=== PATIENT | female | born 1975 | race Caucasian/White ===

== ENCOUNTER → 2020-07-02 10:46 | Outpatient (CLI) | payer OTHER, SELFPAY ==
--- NOTE | 2020-07-02 10:49 | MR_ITS ---
PROCEDURE: MR LUMBAR SPINE WO CON CLINICAL INDICATION: BACK PAIN Bilateral leg numbness and tingling. Rt side is worse. Symptoms xyrs. COMPARISON: No exams were available for comparison TECHNIQUE: Standard multiplanar multiecho sequences are performed without contrast. 3-D MIP and myelographic images are also rendered and reviewed FINDINGS: There is normal alignment. The spinal cord ends at the L1 level. T11-T12: Unremarkable. T12-L1: Mild degenerative disc disease. Minimal bulging disc. Mild facet and ligamentum hypertrophy. L1-L2: Mild degenerative disc disease with mild facet and ligamentum hypertrophy L2-L3: Degenerative disc disease with bulging disc along with facet and ligamentum hypertrophy with bilateral lateral recess narrowing and mild bilateral foraminal narrowing. L3-L4: Degenerative disc disease with bulging disc which is eccentric toward the right versus broad-based right paracentral and foraminal disc protrusion along with facet and ligamentum hypertrophy. There is moderate right lateral recess narrowing with the disc abutting the anterior aspect of the right L4 nerve root. There is mild right-sided foraminal narrowing . Increased T2 signal involves the L3 vertebral body right laterally suggesting a small incidental hemangioma measuring approximately 11 mm. L4-5: Minimal bulging disc with mild facet and ligamentum hypertrophy L5-S1: Mild facet hypertrophic change. No extruded herniated disc is evident. No bony canal stenosis. No acute fracture. IMPRESSION: Multilevel lumbar spondylosis with degenerative disc disease, bulging disc, and facet and ligamentum hypertrophy. Please see above for detailed description at each level. Small broad-based right paracentral and foraminal disc protrusion versus asymmetric bulging disc at L3-L4 with some impingement upon the right L4 nerve root. No extruded herniated disc or canal stenosis. Dictated by: Joel Doyle MD 07/05/2020 12:29 Joel Doyle MD in [place] 07/05/2020 12:29
== END ==
PROVIDERS: PCP Nurse Practitioner; Visit Provider Clinical Nurse Specialist Family Health
DX: M54.5 Low back pain (principal)
CPT/HCPCS: 72148; 76376

== ENCOUNTER → 2020-07-08 15:28 | Outpatient (POV) | payer OTHER, SELFPAY ==
[2020-07-08 15:31] VITALS: BMI 37.4
--- NOTE | 2020-07-08 16:02 | P.CONS_ITS ---
[facility] Pain Management SOAP Note Subjective:: Is a pleasant 44-year-old white female who presents today for follow-up after her most recent MRI. Patient does have degenerative disc disease along with facet hypertrophy ligamentum flavum hypertrophy. Patient does have a L3-L4 disc abutting the anterior aspect of the right L4 nerve root. Patient is interested in injective therapy. She would like to try injective therapy prior to any neurosurgical consultations. She rates her pain today a 5 out of 10. ROS General: no recent weight change, no fever, no sleep disturbances Respiratory: no cough, no shortness of air, no recurring pulmonary infections Cardiovascular/Peripheral Vascular: No chest pain, No palpitations, no edema, no shortness of breath. Gastrointestinal: no new onset incontinence, normal bowel movements reported Genitourinary: no new onset incontinence Musculoskeletal: Back pain, right leg pain Psychiatric: normal mood/ affect Neurological: [denies new onset weakness in extremities], [denies new onset balance issues] Objective:: Physical Exam General: Alert and oriented x3, no acute distress, pleasant and cooperative, [on room air] Lungs: Resps E/U, Symmetrical chest expansion, Eyes: PERRL Musculoskeletal: Flexion and extension of lumbar spine somewhat guarded secondary to pain, deep tendon reflexes normal, strength in upper and lower extremities [5/5], Palgic gait noted Neurological: speech clear, dispenser operator equal, no gross sensory deficits Assessment:: Degenerative disc disease lumbar spine lumbar radiculopathy, back pain Plan:: We will set the patient up for a L3-L4 lumbar epidural steroid injection. I will follow-up with her after this reassess her symptoms at that time. She is not on any anticoagulation therapy. She has been instructed to call the office if she has any issues prior to her next appointment. Dr. Hurst has reviewed this note and agrees with this plan of care. This note was dictated using voice recognition software and may contain errors or omissions [facility] History I have reviewed the patient's past medical history: Yes *Have you ever received a pneumonia vaccine?: No *Have you received a flu vaccine this season?: Yes - *Social History *Occupational Status:: employed *Travel in the last 8 weeks: None Family Hx:: No significant family history, Non-contributory
== END ==
PROVIDERS: Visit Provider Clinical Nurse Specialist Family Health
DX: M51.16 Intervertebral disc disorders with radiculopathy, lumbar region (principal)
CPT/HCPCS: 99212; G0463

== ENCOUNTER 2020-07-09 09:31 | Day surgery (SDC) | payer OTHER, SELFPAY ==
[2020-07-09 09:34] VITALS: BP 136/82; PULSE 76; RESP 20; O2SAT 98; BMI 34.4
[2020-07-09 09:43] VITALS: BP 135/85; PULSE 88; RESP 18; O2SAT 98
[2020-07-09 09:45] VITALS: BP 139/78; PULSE 85; RESP 18; O2SAT 98
[2020-07-09 09:50] VITALS: BP 130/85; PULSE 80; RESP 20; O2SAT 98
--- NOTE | 2020-07-09 09:50 | HMH.PMPROC ---
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 She has had SI joint injections before which have helped her tremendously. She now has new pain in her low back and down her right leg. MRI does show disc herniation at L3-L4. She is disc herniated abutting the right L4 nerve root. Most of her pain is down the right leg. We will do a lumbar epidural steroid injection today to help her with her pain symptoms. Procedure Details:: Informed consent was obtained and the risk and benefits of the procedure was explained to the patient. The patient was taken to the procedure room. The patient was placed prone on the procedure table. The patient was prepped and draped in sterile fashion. C-arm fluoroscopy was used to view the lumbar spine. Skin and subcutaneous tissues were anesthetized using lidocaine. I placed an 18-gauge epidural needle and advanced into the L3-L4 interspace using fluoroscopic guidance and [id number] to air. After confirmation of needle placement in the epidural space with dye I injected 2 mL of lidocaine 1.5% with Depo-Medrol 80 mg. Patient tolerated the procedure well with no complications. Plan and Disposition:: We will follow-up with her in 2 weeks. Will reevaluate symptoms at that time.
== END 2020-07-09 09:51 | disposition home or self-care (01) ==
LOC: SC.PAINP 09:31
PROVIDERS: Visit Provider Anesthesiology
DX: M51.16 Intervertebral disc disorders with radiculopathy, lumbar region (principal); K21.9 Gastro-esophageal reflux disease without esophagitis; E03.9 Hypothyroidism, unspecified; I10 Essential (primary) hypertension; Z98.84 Bariatric surgery status
CPT/HCPCS: 62323; J1040; Q9966

== ENCOUNTER 2020-08-20 11:06 | Day surgery (SDC) | payer OTHER, SELFPAY ==
[2020-08-20 11:13] VITALS: BP 122/85; PULSE 86; RESP 18; TEMP 36.7; O2SAT 100; BMI 37.3
[2020-08-20 11:41] VITALS: BP 129/71; PULSE 67; RESP 18; O2SAT 99
[2020-08-20 11:42] VITALS: BP 129/71; PULSE 68; RESP 18; O2SAT 99
--- NOTE | 2020-08-20 11:46 | HMH.PMPROC ---
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 She has done well with previous SI joint injections. She now has increasing back pain in her back rating down her right leg. She has a herniated disc at L3-L4 with disc herniation abutting the right L4 nerve root. We will do a lumbar epidural steroid injection at L3-L4 today to see if this gives her relief of her pain symptoms. Procedure Details:: Informed consent was obtained and the risk and benefits of the procedure was explained to the patient. The patient was taken to the procedure room. The patient was placed prone on the procedure table. The patient was prepped and draped in sterile fashion. C-arm fluoroscopy was used to view the lumbar spine. Skin and subcutaneous tissues were anesthetized using lidocaine. I placed an 18-gauge epidural needle and advanced into the L3-L4 interspace using fluoroscopic guidance and [id number] to air. After confirmation of needle placement in the epidural space with dye I injected 2 mL of lidocaine 1.5% with Depo-Medrol 80 mg. Patient tolerated the procedure well with no complications. Plan and Disposition:: We will follow-up with her in 2 weeks. Will reevaluate her symptoms at that time. She is having problem with her SI joints again. She got several weeks relief from the last round of injections. She may need repeat bilateral SI joint injections in the future.
[2020-08-20 12:00] VITALS: BP 124/60; PULSE 86; RESP 20; O2SAT 100
== END 2020-08-20 12:00 | disposition home or self-care (01) ==
LOC: SC.PAINP 11:06
PROVIDERS: Visit Provider Anesthesiology
DX: M51.16 Intervertebral disc disorders with radiculopathy, lumbar region (principal); M51.26 Other intervertebral disc displacement, lumbar region; I10 Essential (primary) hypertension; E03.9 Hypothyroidism, unspecified; Z98.84 Bariatric surgery status
CPT/HCPCS: 62323; J1040; Q9966

== ENCOUNTER → 2021-03-31 10:20 | Outpatient (CLI) | payer BC, SELFPAY | PROVIDERS: PCP Nurse Practitioner Family; Visit Provider Nurse Practitioner | DX: U07.1 COVID-19 (principal) | CPT/HCPCS: C9803; U0003; U0005 ==

== ENCOUNTER → 2023-01-26 11:00 | Outpatient (CLI) | payer OTHER, SELFPAY ==
[2023-01-26 11:55] LABS: Basophils # 0.1 K/mm3 (0-0.2); Basophils % 0.9 % (0.1-2.0); Eosinophils # 0.3 K/mm3 (0.0-0.4); Eosinophils % 3.6 % (0.1-12.0); Hematocrit 25.8 % (37.0-47.0); Hemoglobin 7.7 g/dL (12.2-16.2); Lymphocytes # 1.6 K/mm3 (0.7-4.5); Lymphocytes % 21.5 % (10-50); Mean Corpuscular HGB Conc 29.7 g/dL (31.8-35.4); Mean Corpuscular Hemoglobin 19.8 pg (27.0-31.2); Mean Corpuscular Volume 66.6 fl (81-99); Mean Platelet Volume 7.8 fl (7.4-10.4); Monocytes # 0.6 K/mm3 (0.1-1.0); Monocytes % 7.6 % (1.7-9.3); Neutrophils # 4.9 K/mm3 (1.8-7.8); Neutrophils % 66.4 % (37.0-80.0); Platelet Count 495 K/mm3 (142-424); Red Blood Count 3.87 M/mm3 (4.20-5.40); Red Cell Distribution Width 18.7 % (11.5-17.5); White Blood Count 7.4 K/mm3 (4.8-10.8)
[2023-01-26 12:46] LABS: Alanine Aminotransferase 19 U/L (12-78); Albumin Level 4.3 g/dl (3.5-5.0); Alkaline Phosphatase 96 U/L (38-126); Aspartate Amino Transferase 29 U/L (14-36); Bilirubin,Direct 0.1 mg/dl (0.0-0.4); Bilirubin,Indirect 0.2 mg/dL (0.0-0.9); Bilirubin,Total 0.3 mg/dl (0.2-1.3); Bilirubin,Unconjugated 0.3 mg/dL (0.0-1.1); Blood Urea Nitrogen 6 mg/dl (7-17); Calcium 9.2 mg/dl (8.4-10.2); Carbon Dioxide 27 mmol/L (22.0-30.0); Chloride 103 mmol/L (98-107); Chol/HDL Ratio 4.2 (1-3.5); Cholesterol 174 mg/dl (140-200); Estimated Glomerular Filt Rate 106 ml/min (>60); GFR (African American) 129 ML/MIN (>60); Glucose 100 mg/dl (74-100); HDL Cholesterol 41 mg/dl (40-60); Sodium 140 mmol/L (136-145); Total Protein,Serum 7.4 g/dl (6.3-8.2); Triglycerides 94 mg/dl (30-150); VLDL Cholesterol 19 mg/dL (0-40)
[2023-01-26 13:05] LABS: 25-OH Vitamin D, Total 38.3 ng/mL (30-100); Direct LDL Cholesterol 103.35 mg/dL (100-129)
[2023-01-26 13:18] LABS: Thyroid Stimulating Hormone 1.53 uIU/mL (0.465-4.68)
[2023-01-26 13:43] VITALS: BMI 38.8
[2023-01-26 14:37] LABS: Reticulocyte % (Auto) 1.7 % (0.9-3.2)
[2023-01-26 15:35] LABS: Iron 25 ug/dL (37-170)
[2023-01-26 15:45] LABS: Total Iron Binding Capacity 467 ug/dL (265-497)
[2023-01-26 16:35] LABS: Folate > 20.00 ng/mL
[2023-01-26 18:48] LABS: Vitamin B12 > 1000 pg/mL (239-931)
== END ==
PROVIDERS: Internal Medicine Medical Oncology; Nurse Practitioner Family; PCP Nurse Practitioner Family; Visit Provider Internal Medicine
DX: R06.00 Dyspnea, unspecified (principal); R42 Dizziness and giddiness; R00.0 Tachycardia, unspecified; R60.0 Localized edema; D64.9 Anemia, unspecified; E66.9 Obesity, unspecified; Z68.38 Body mass index [BMI] 38.0-38.9, adult; Z82.49 Family history of ischemic heart disease and other diseases of the circulatory system
CPT/HCPCS: 36415; 80048; 80061; 80076; 82306; 82607; 82746; 83540; 83550; 83735; 84439; 84443; 85025; 85044

== ENCOUNTER 2023-02-02 15:40 | Outpatient (CLI) | payer OTHER, SELFPAY ==
[2023-02-02 15:58] VITALS: BP 128/69; PULSE 79; RESP 17; O2SAT 99
[2023-02-02 16:28] VITALS: BP 108/71; PULSE 77; RESP 16
== END 2023-02-02 16:45 | disposition home or self-care (01) ==
LOC: INF 15:40
PROVIDERS: PCP Nurse Practitioner Family; Visit Provider Internal Medicine Medical Oncology
DX: D50.8 Other iron deficiency anemias (principal)
CPT/HCPCS: 96365; J1756

== ENCOUNTER 2023-02-05 08:31 | Outpatient (CLI) | payer OTHER, SELFPAY ==
[2023-02-05 08:58] VITALS: BP 109/57; PULSE 83; RESP 18; O2SAT 100
[2023-02-05 09:30] VITALS: BP 103/68; PULSE 76; RESP 18
== END 2023-02-05 09:30 | disposition home or self-care (01) ==
LOC: INF 08:32
PROVIDERS: PCP Nurse Practitioner Family; Visit Provider Internal Medicine Medical Oncology
DX: D50.9 Iron deficiency anemia, unspecified (principal)
CPT/HCPCS: 96365; J1756

== ENCOUNTER 2023-02-12 08:28 | Outpatient (CLI) | payer OTHER, SELFPAY ==
[2023-02-12 08:52] VITALS: BP 102/51; PULSE 71; RESP 18; O2SAT 98
[2023-02-12 09:35] VITALS: BP 106/55; PULSE 74; RESP 18; O2SAT 97
== END 2023-02-12 09:35 | disposition home or self-care (01) ==
LOC: INF 08:28
PROVIDERS: PCP Nurse Practitioner Family; Visit Provider Internal Medicine Medical Oncology
DX: D50.9 Iron deficiency anemia, unspecified (principal)
CPT/HCPCS: 96365; J1756

== ENCOUNTER 2023-02-19 08:18 | Outpatient (CLI) | payer OTHER, SELFPAY ==
[2023-02-19 08:40] VITALS: BP 111/53; PULSE 71; RESP 18; TEMP 36.3; O2SAT 99
[2023-02-19 09:15] VITALS: BP 114/58; PULSE 76; RESP 18; O2SAT 99
== END 2023-02-19 09:20 | disposition home or self-care (01) ==
LOC: INF 08:19
PROVIDERS: PCP Nurse Practitioner Family; Visit Provider Internal Medicine Medical Oncology
DX: D50.9 Iron deficiency anemia, unspecified (principal)
CPT/HCPCS: 96365; J1756

== ENCOUNTER 2023-02-26 08:28 | Outpatient (CLI) | payer OTHER, SELFPAY ==
[2023-02-26 08:50] VITALS: BP 91/54; PULSE 84; RESP 18; TEMP 36.8; O2SAT 99
[2023-02-26 09:25] VITALS: BP 110/61; PULSE 84; RESP 18; TEMP 36.7; O2SAT 97
== END 2023-02-26 09:30 | disposition home or self-care (01) ==
LOC: INF 08:29
PROVIDERS: PCP Nurse Practitioner Family; Visit Provider Internal Medicine Medical Oncology
DX: D50.9 Iron deficiency anemia, unspecified (principal)
CPT/HCPCS: 96365; J1756

== ENCOUNTER 2023-03-22 17:19 | Outpatient (CLI) | payer SELFPAY ==
[2023-03-22 18:34] LABS: Basophils # 0.1 K/mm3 (0-0.2); Eosinophils # 0.4 K/mm3 (0.0-0.4); Eosinophils % 5.1 % (0.1-12.0); Hematocrit 35.5 % (37.0-47.0); Hemoglobin 11.4 g/dL (12.2-16.2); Lymphocytes # 2.4 K/mm3 (0.7-4.5); Lymphocytes % 30.9 % (10-50); Mean Corpuscular HGB Conc 32.2 g/dL (31.8-35.4); Mean Corpuscular Hemoglobin 26.1 pg (27.0-31.2); Mean Corpuscular Volume 80.9 fl (81-99); Mean Platelet Volume 7.5 fl (7.4-10.4); Monocytes # 0.7 K/mm3 (0.1-1.0); Monocytes % 8.3 % (1.7-9.3); Neutrophils # 4.3 K/mm3 (1.8-7.8); Neutrophils % 54.7 % (37.0-80.0); Platelet Count 315 K/mm3 (142-424); Red Blood Count 4.39 M/mm3 (4.20-5.40); White Blood Count 7.8 K/mm3 (4.8-10.8)
[2023-03-22 18:39] LABS: Red Cell Distribution Width 25.3 % (11.5-17.5)
[2023-03-22 19:51] LABS: Iron 42 ug/dL (37-170)
[2023-03-22 20:01] LABS: Total Iron Binding Capacity 343 ug/dL (265-497)
[2023-03-22 20:27] LABS: Ferritin 29.8 ng/ml (6.24-137)
[2023-03-22 21:50] LABS: Vitamin B12 895 pg/mL (239-931)
== END 2023-03-22 23:59 ==
PROVIDERS: PCP Internal Medicine Medical Oncology; Visit Provider Internal Medicine Medical Oncology
DX: D50.9 Iron deficiency anemia, unspecified (principal)
CPT/HCPCS: 36415; 82607; 82728; 82746; 83540; 83550; 85025

== ENCOUNTER 2023-05-08 16:46 | Outpatient (CLI) | payer OTHER, SELFPAY ==
[2023-05-08 17:15] LABS: Basophils # 0.1 K/mm3 (0-0.2); Basophils % 0.5 % (0.1-2.0); Eosinophils # 0.4 K/mm3 (0.0-0.4); Eosinophils % 4.7 % (0.1-12.0); Hematocrit 37.7 % (37.0-47.0); Lymphocytes # 2.9 K/mm3 (0.7-4.5); Lymphocytes % 33.1 % (10-50); Mean Corpuscular HGB Conc 31.8 g/dL (31.8-35.4); Mean Corpuscular Hemoglobin 27.1 pg (27.0-31.2); Mean Corpuscular Volume 84.9 fl (81-99); Mean Platelet Volume 7.9 fl (7.4-10.4); Monocytes # 0.7 K/mm3 (0.1-1.0); Monocytes % 8.5 % (1.7-9.3); Neutrophils # 4.6 K/mm3 (1.8-7.8); Neutrophils % 53.3 % (37.0-80.0); Platelet Count 327 K/mm3 (142-424); Red Blood Count 4.43 M/mm3 (4.20-5.40); Reticulocyte % (Auto) 2.4 % (0.9-3.2); White Blood Count 8.6 K/mm3 (4.8-10.8)
[2023-05-08 18:22] LABS: Free T4 (Free Thyroxine) 1.02 ng/dl (0.78-2.19)
[2023-05-08 18:37] LABS: Thyroid Stimulating Hormone 2.75 uIU/mL (0.465-4.68)
[2023-05-08 18:38] LABS: Iron 35 ug/dL (37-170)
[2023-05-08 18:48] LABS: Total Iron Binding Capacity 393 ug/dL (265-497)
[2023-05-08 19:13] LABS: Vitamin B12 817 pg/mL (239-931)
[2023-05-08 19:15] LABS: Ferritin 8.56 ng/ml (6.24-137)
== END 2023-05-08 23:59 ==
LOC: LAB 16:47
PROVIDERS: PCP Nurse Practitioner Family; Visit Provider Nurse Practitioner Family
DX: D50.9 Iron deficiency anemia, unspecified (principal); E03.8 Other specified hypothyroidism
CPT/HCPCS: 36415; 82607; 82728; 82746; 83540; 83550; 84439; 84443; 85025; 85044

== ENCOUNTER 2023-05-23 15:49 | Outpatient (CLI) | payer OTHER, SELFPAY ==
[2023-05-23 16:03] VITALS: BP 113/71; PULSE 73; RESP 20; TEMP 36.4; O2SAT 98
[2023-05-23] MEDS: IRON SUCROSE COMPLEX 200 MG in 0.9 % SODIUM CHLORIDE 100 ML 220 MG IV (16:03)
[2023-05-23] MEDS: SODIUM CHLORIDE 0.9% 50ML BAG 50 ML IV (16:03)
[2023-05-23] MEDS: SODIUM CHLORIDE 0.9% 10ML FLUSH SYRINGE 10 ML IV (16:03)
== END 2023-05-23 16:53 | disposition home or self-care (01) ==
LOC: INF 15:50
PROVIDERS: PCP Nurse Practitioner Family; Visit Provider Internal Medicine Medical Oncology
DX: D50.0 Iron deficiency anemia secondary to blood loss (chronic) (principal); K91.2 Postsurgical malabsorption, not elsewhere classified; D50.8 Other iron deficiency anemias
CPT/HCPCS: 96365; J1756

== ENCOUNTER 2023-05-30 16:17 | Outpatient (CLI) | payer OTHER, SELFPAY ==
[2023-05-30 16:32] VITALS: BP 104/63; PULSE 73; RESP 20; TEMP 36.7; O2SAT 99
[2023-05-30] MEDS: SODIUM CHLORIDE 0.9% 10ML FLUSH SYRINGE 10 ML IV (16:33)
[2023-05-30] MEDS: SODIUM CHLORIDE 0.9% 50ML BAG 50 ML IV (16:33)
[2023-05-30] MEDS: IRON SUCROSE COMPLEX 200 MG in 0.9 % SODIUM CHLORIDE 100 ML 220 MG IV (16:34)
[2023-05-30 17:07] VITALS: BP 122/63; PULSE 64; RESP 18; O2SAT 99
== END 2023-05-30 17:07 | disposition home or self-care (01) ==
LOC: INF 16:17
PROVIDERS: PCP Nurse Practitioner Family; Visit Provider Internal Medicine Medical Oncology
DX: D50.0 Iron deficiency anemia secondary to blood loss (chronic) (principal)
CPT/HCPCS: 96365; J1756

== ENCOUNTER 2023-06-04 16:23 | Outpatient (CLI) | payer OTHER, SELFPAY ==
--- NOTE | 2023-06-04 17:01 | PC.NURSE ---
06/04/23 1625 Pt presents today for venofer infusion. Unable to contact pharmacy staff concerning delivery of medication. Contacted Edgar Ledezma RN, smokehouse operator, and iv venofer is not available in house stock omni's. Contacted pharmacist special education curriculum specialist and all staff has left and is not available to return at this time unless emergent. Spoke with pt and pt is agreeable to reschedule appt tomorrow for infusion.
== END 2023-06-04 16:50 | disposition home or self-care (01) ==
LOC: INF 16:23
PROVIDERS: PCP Nurse Practitioner Family; Visit Provider Internal Medicine Medical Oncology
DX: D50.9 Iron deficiency anemia, unspecified (principal)

== ENCOUNTER 2023-06-06 14:44 | Outpatient (CLI) | payer OTHER, SELFPAY ==
[2023-06-06] MEDS: IRON SUCROSE COMPLEX 200 MG in 0.9 % SODIUM CHLORIDE 100 ML 220 MG IV (15:00)
[2023-06-06] MEDS: SODIUM CHLORIDE 0.9% 50ML BAG 50 ML IV (15:00)
[2023-06-06 15:10] VITALS: BP 116/74; PULSE 66; RESP 18; O2SAT 96
[2023-06-06 15:40] VITALS: BP 104/69; PULSE 69; RESP 16
== END 2023-06-06 16:00 | disposition home or self-care (01) ==
PROVIDERS: PCP Nurse Practitioner Family; Visit Provider Internal Medicine Medical Oncology
DX: D50.0 Iron deficiency anemia secondary to blood loss (chronic) (principal); T45.4X5A Adverse effect of iron and its compounds, initial encounter; Z98.84 Bariatric surgery status
CPT/HCPCS: 96365; J1756

== ENCOUNTER 2023-06-22 07:59 | Outpatient (CLI) | payer OTHER, SELFPAY ==
[2023-06-22 08:16] LABS: Basophils # 0.1 K/mm3 (0-0.2); Basophils % 2.1 % (0.1-2.0); Eosinophils # 0.2 K/mm3 (0.0-0.4); Eosinophils % 4.2 % (0.1-12.0); Hematocrit 41.3 % (37.0-47.0); Hemoglobin 12.8 g/dL (12.2-16.2); Lymphocytes # 1.6 K/mm3 (0.7-4.5); Lymphocytes % 28.2 % (10-50); Mean Corpuscular HGB Conc 30.9 g/dL (31.8-35.4); Mean Corpuscular Hemoglobin 28.7 pg (27.0-31.2); Mean Platelet Volume 8.2 fl (7.4-10.4); Monocytes # 0.8 K/mm3 (0.1-1.0); Monocytes % 14.7 % (1.7-9.3); Neutrophils # 2.9 K/mm3 (1.8-7.8); Neutrophils % 50.9 % (37.0-80.0); Platelet Count 263 K/mm3 (142-424); Red Blood Count 4.44 M/mm3 (4.20-5.40); Red Cell Distribution Width 16.4 % (11.5-17.5); White Blood Count 5.6 K/mm3 (4.8-10.8)
[2023-06-22 09:08] LABS: Iron 109 ug/dL (37-170)
[2023-06-22 09:18] LABS: Total Iron Binding Capacity 284 ug/dL (265-497)
[2023-06-22 09:44] LABS: Ferritin 58.2 ng/ml (6.24-137)
== END 2023-06-22 23:59 ==
LOC: LAB 07:59
PROVIDERS: PCP Nurse Practitioner Family; Visit Provider Internal Medicine Medical Oncology
DX: D50.9 Iron deficiency anemia, unspecified (principal)
CPT/HCPCS: 36415; 82728; 83540; 83550; 85025

== ENCOUNTER 2024-01-03 06:49 | Outpatient (CLI) | payer OTHER, SELFPAY ==
[2024-01-03 07:17] LABS: Basophils # 0.1 K/mm3 (0-0.2); Basophils % 1.9 % (0.1-2.0); Eosinophils # 0.4 K/mm3 (0.0-0.4); Eosinophils % 4.9 % (0.1-12.0); Hematocrit 41.2 % (37.0-47.0); Hemoglobin 13.5 g/dL (12.2-16.2); Lymphocytes % 27.7 % (10-50); Mean Corpuscular HGB Conc 32.8 g/dL (31.8-35.4); Mean Corpuscular Hemoglobin 30.6 pg (27.0-31.2); Mean Corpuscular Volume 93.3 fl (81-99); Mean Platelet Volume 7.5 fl (7.4-10.4); Monocytes # 0.7 K/mm3 (0.1-1.0); Monocytes % 10.3 % (1.7-9.3); Neutrophils # 3.9 K/mm3 (1.8-7.8); Neutrophils % 55.3 % (37.0-80.0); Platelet Count 262 K/mm3 (142-424); Red Blood Count 4.42 M/mm3 (4.20-5.40); Red Cell Distribution Width 13.1 % (11.5-17.5); White Blood Count 7.1 K/mm3 (4.8-10.8)
[2024-01-03 07:50] LABS: Iron 85 ug/dL (37-170)
[2024-01-03 08:00] LABS: Total Iron Binding Capacity 297 ug/dL (265-497)
[2024-01-03 08:27] LABS: Ferritin 20.1 ng/ml (6.24-137)
== END 2024-01-03 23:59 | disposition home or self-care (01) ==
LOC: LAB 06:50
PROVIDERS: PCP Nurse Practitioner Family; Visit Provider Internal Medicine Medical Oncology
DX: D50.9 Iron deficiency anemia, unspecified (principal)
CPT/HCPCS: 36415; 82728; 83540; 83550; 85025

== ENCOUNTER 2024-03-14 07:45 | Outpatient (CLI) | payer OTHER, SELFPAY ==
--- NOTE | 2024-03-14 07:46 | MM_ITS ---
PROCEDURE INFORMATION: Exam: MG Bilateral Screening 3D Mammography Exam date and time: 03/14/2024 7:52 AM Age: 48 years old Clinical indication: Screening examination TECHNIQUE: Imaging protocol: Bilateral Screening tomosynthesis and 2D mammography including computer-aided detection (CAD) when performed. COMPARISON: 1. MG MAMMO DIAGNOSTIC DIGITAL TOMOSYNTHESIS BILATERAL W CAD 07/28/2022 10:16 AM 2. US BREAST BILATERAL LIMITED 07/28/2022 11:15 AM FINDINGS: MAMMOGRAPHY: Breast composition: There are scattered areas of fibroglandular density. Mass: None. Architectural distortion: None. Calcifications: No suspicious calcifications. Asymmetric density: None. Skin thickening: None. Axillary adenopathy: None. IMPRESSION: No mammographic evidence of malignancy. Annual screening is recommended unless otherwise clinically indicated. ASSESSMENT: BI-RADS Category 1: Negative.
== END 2024-03-14 23:59 | disposition home or self-care (01) ==
LOC: RAD 07:46
PROVIDERS: PCP Nurse Practitioner Family; Visit Provider Obstetrics & Gynecology
DX: Z12.31 Encounter for screening mammogram for malignant neoplasm of breast (principal)
CPT/HCPCS: 77063; 77067

== ENCOUNTER 2024-06-03 17:10 | Outpatient (CLI) | payer OTHER, SELFPAY ==
[2024-06-03 17:54] LABS: Basophils # 0.1 K/mm3 (0-0.2); Basophils % 0.7 % (0.1-2.0); Eosinophils # 0.4 K/mm3 (0.0-0.4); Eosinophils % 3.8 % (0.1-12.0); Hematocrit 38.2 % (37.0-47.0); Hemoglobin 12.4 g/dL (12.2-16.2); Lymphocytes # 2.3 K/mm3 (0.7-4.5); Lymphocytes % 20.9 % (10-50); Mean Corpuscular HGB Conc 32.5 g/dL (31.8-35.4); Mean Corpuscular Hemoglobin 29.1 pg (27.0-31.2); Mean Corpuscular Volume 89.7 fl (81-99); Mean Platelet Volume 9.6 fl (7.4-10.4); Monocytes # 1.5 K/mm3 (0.1-1.0); Monocytes % 13.1 % (1.7-9.3); Neutrophils # 6.8 K/mm3 (1.8-7.8); Neutrophils % 61.3 % (37.0-80.0); Platelet Count 290 K/mm3 (142-424); Red Blood Count 4.26 M/mm3 (4.20-5.40); Red Cell Distribution Width 12.7 % (11.5-17.5)
[2024-06-03 18:25] LABS: Iron 66 ug/dL (37-170)
[2024-06-03 18:34] LABS: Total Iron Binding Capacity 350 ug/dL (265-497)
[2024-06-03 19:01] LABS: Ferritin 9.55 ng/ml (6.24-137)
== END 2024-06-03 23:59 | disposition home or self-care (01) ==
PROVIDERS: Nurse Practitioner; PCP Nurse Practitioner Family; Visit Provider Nurse Practitioner Family
DX: D50.9 Iron deficiency anemia, unspecified (principal)
CPT/HCPCS: 36415; 82728; 83540; 83550; 85025

== ENCOUNTER 2024-06-13 14:09 | Outpatient (POV) | payer OTHER, SELFPAY ==
[2024-06-13 14:49] VITALS: BP 113/82; PULSE 62; RESP 16; O2SAT 95; BMI 41.3
--- NOTE | 2024-06-13 15:19 | EXP.PAIN.SOA ---
[facility] Disclaimer: The information contained in this section may have been updated after the patient was seen, as this information can be updated by other users. Medical History (Updated 06/13/24 @ 15:18 by Angelica Kahn APRN) Hx of iron deficiency anemia Hypothyroid GERD (gastroesophageal reflux disease) HTN (hypertension) Anxiety Depression Anemia Surgical History Hx of tubal ligation Hx of section H/O bariatric surgery Family History Other Ischemic heart disease Social History Smoking Status: Never smoker second hand exposure: No alcohol intake: never current occupational status: other Travel in the last 8 weeks: None household members: spouse housing: house current occupational exposures/hazards: No caffeine: Yes PM Subjective & Objective Subjective Subjective:: Patient is a pleasant 48-year-old female who presents today for worsening pain. She rates her pain currently a 5 out of 10. Patient states that she has been having chronic low back and hip pain bilaterally. She does state that the left side is worse than the right. Patient states this is gone on for years since long before we did injections for her back in 2020. Patient does describe it as a aching sensation with numbness and tenderness to touch. Patient does state that increased activity makes it worse. Patient does do a lot of sitting and squatting and feels like this really aggravates her symptoms. She states that she has trouble laying on her sides due to the worsening pain and frequently has to change positions multiple times. Patient has tried conservative therapy including chiropractor therapy, massage therapy, oral medications, heat and ice, topicals and heat and TENS unit with minimal changes. Patient does try and be very active and goes to the gym as well as walks daily. Patient did previously have injections from our office that did provide significant relief. Patient is interested in doing additional injections due to the worsening symptoms. She does state the pain interferes with her ability perform activities of daily living such as cooking and cleaning. She is not on any scheduled medications. Richard has been reviewed. Review of Systems: General: No recent weight changes, no fever, no sleep disturbances Respiratory: No cough, no shortness of air, no recurring pulmonary infections Cardiovascular/peripheral vascular: No chest pain, no palpitations, no edema, no shortness of breath Gastrointestinal: No new onset incontinence, normal bowel movements reported Genitourinary: No new onset incontinence Musculoskeletal: Low back pain, bilateral hip pain Psychiatric: [Normal mood/affect] Neurological: [Denies weakness in extremities], [denies balance issues] Pain at rest (0-10 scale): 5 Objective Objective:: Physical Exam: General: Alert and oriented x3, no acute distress, pleasant and cooperative Lungs: Respirations even and unlabored, symmetrical chest expansion Eyes: PERRL Musculoskeletal: Flexion and extension of lumbar [spine] somewhat guarded secondary to pain, [antalgic gait noted] point tenderness along bilateral SIs with positive bilateral Fercho's, Nirmal's, Gaenslen's, compression and distraction exam Neurological: Speech clear, no gross sensory deficit Has patient had previous pain injection?: No Conservative treatment options previously tried: Home exercise plan Length of treatment: Longer than 12 weeks and Chiropractor Length of treatment: Ongoing Meds Home Medications and Allergies Home Medications ?Medication ?Instructions ?Recorded ?Confirmed ?Type hydrochlorothiazide 25 mg tablet 25 mg PO DAILY fluid retention 07/08/20 06/13/24 History levothyroxine 75 mcg tablet 75 mcg PO DAILY hypothyroid 07/08/20 06/13/24 History omeprazole 20 mg capsule,delayed 20 mg PO DAILY GERD 07/08/20 06/13/24 History release cetirizine 10 mg tablet 10 mg PO DAILY seasonal allergies 01/26/23 06/13/24 History bisoprolol fumarate 10 mg tablet 10 mg PO DAILY #90 tabs 01/03/24 06/13/24 Rx multivitamin-calcium, 1 tab PO DAILY Supplement 01/03/24 06/13/24 History [id number] isoflavone 400 mcg-60 mg tablet (One-A-Day Menopause Formula) polysaccharide iron complex 180 mg 180 mg PO DAILY Anemia 01/03/24 06/13/24 History iron capsule (Pro Fe) CombiPatch 0.05 mg-0.14 mg/24 hr 1 patch transdermal .2xweekly #8 ea 02/25/24 06/13/24 Rx transdermal (estradiol-norethindrone acet) New Prescriptions to Start Prescriptions: Allergies Allergy/AdvReac Type Severity Reaction Status Date / Time No Known Allergies Allergy Verified 02/22/24 14:24 Assessment and Plan *Assessment and plan (1) Bilateral sacroiliitis: Status: Acute Category: Medical Code(s): M46.1 - Sacroiliitis, not elsewhere classified Plan Patient is experiencing worsening pain along the low back and bilateral hips. They did have limited range of motion of the lumbar spine along with point tenderness along bilateral SI joints and a positive bilateral Fercho's, Nirmal's, Gaenslen's, compression and distraction exam. I did discuss with the patient that I do believe they would benefit from bilateral SI injections. Risk and benefits were discussed with the patient and they would like to proceed forward with this option. Patient has tried and failed conservative therapy including continued at home stretching exercise for longer than 12 weeks. Patient has had continued chiropractor therapy and has continued the physician guided exercises at home. Patient did in fact have sacroiliitis in the past when we saw her in 2020 and did have injection therapy however denies any recent injections since that time. Patient will also be ordered x-ray imaging due to not having any updated imaging since 2019 one of her lumbar spine. I will also order the patient compounded cream. Patient will be scheduled for bilateral SI injections under fluoroscopy. Patient has been instructed to contact the clinic with any concerns before the next appointment. Dr. Hurst has reviewed this note and agrees with this plan of care. This note was dictated using voice recognition software and make contain errors or omissions. All injections are used with Lidocaine or Bupivacaine and Depo Medrol.
--- NOTE | 2024-06-13 15:26 | XR_ITS ---
FINAL REPORT CLINICAL HISTORY: Low back pain COMPARISON: None FINDINGS: 3 views of the lumbar spine were obtained. There is no evidence of fracture. There is no malalignment. The vertebrae are normal in height. There is moderate disc space narrowing T12-L1 through L4-L5. There is moderate facet sclerosis throughout the mid and lower lumbar spine. No paraspinous soft tissue abnormalities identified. IMPRESSION: Degenerative changes without acute process. Reviewed, Interpreted and Dictated by Phani Mcfarland MD Transcribed by Ashley Hunt Authenticated and [facility]
== END 2024-06-13 23:59 | disposition home or self-care (01) ==
PROVIDERS: PCP Nurse Practitioner Family; Visit Provider Nurse Practitioner Family
DX: M46.1 Sacroiliitis, not elsewhere classified (principal); Z73.89 Other problems related to life management difficulty
CPT/HCPCS: 72100; 99212; G0463

== ENCOUNTER 2024-07-15 11:25 | Day surgery (SDC) | payer OTHER, SELFPAY ==
[2024-07-15 11:30] VITALS: BP 109/77; PULSE 68; RESP 16; O2SAT 96; BMI 41.1
[2024-07-15 11:37] VITALS: BP 124/66; PULSE 67; PULSE 68; RESP 18; O2SAT 99
[2024-07-15] MEDS: LIDOCAINE 1% 5ML PF VIAL 5 ML (11:37)
[2024-07-15] MEDS: BUPIVACAINE 0.25% 10ML INJ 25 MG IJ (11:37)
[2024-07-15] MEDS: DEXAMETHASONE 10MG/ML 1ML VIAL 10 MG (11:37)
--- NOTE | 2024-07-15 11:45 | P.PCN_ITS ---
Procedure Date: 07/15/24 Time: 11:40 Anesthesiologist:: Mitchell Wing CRNA Complications:: None Pre-procedure Diagnosis:: Bilateral sacroiliitis Post-procedure Diagnosis:: Same Indications for Procedure:: Patient is a pleasant 48-year-old female who comes to clinic today for bilateral sacroiliac joint injections of cortisone and local anesthetic. Patient describes low lumbar back pain off the midline bilaterally. Bilateral posterior hip pain. Difficulty transitioning from sitting to standing. Difficulty with ambulation. She rates her pain 7/10. Procedure Details:: Procedure: Bilateral sacroiliac joint injections under fluoroscopy Informed consent was obtained and the risks and benefits of the procedure were explained to the patient.~ The patient was taken to the procedure room and noninvasive monitors were placed including a noninvasive blood pressure cuff and pulse oximeter.~ The patient was placed prone on the procedure table. Both hips were cleansed using Betadine as a cleansing solution. C-arm fluoroscopy was used to view the right sacroiliac joint.~ The skin and subcutaneous tissues were anesthetized using lidocaine 1.5% and a 25-gauge needle.~ After this, a 22-gauge spinal needle was inserted under fluoroscopic guidance into the inferior aspect of the right sacroiliac joint.~ Omnipaque dye was injected and good spread was seen throughout the joint.~ After this, approximately 5 mL of bupivacaine, 0.25% and Depo-Medrol, 40 mg was incrementally injected into the right sacroiliac joint. We then moved to the left sacroiliac joint.~ The skin and subcutaneous tissues were anesthetized using lidocaine 1.5% and a 25-gauge needle.~ After this, a 22- gauge spinal needle was inserted under fluoroscopic guidance into the inferior aspect of the left sacroiliac joint.~ Omnipaque dye was injected and good spread was seen throughout the joint. After this, approximately 5 mL of bupivacaine, 0.25% and Depo-Medrol, 40 mg was incrementally injected into the left sacroiliac joint.~ The patient tolerated the procedure well with no complications. The patient was observed in the Pain Clinic and then was discharged home neurologically intact. Plan and Disposition:: Patient was discharged without incident.
[2024-07-15 11:53] VITALS: BP 112/73; PULSE 64; RESP 16; O2SAT 96
== END 2024-07-15 11:53 | disposition home or self-care (01) ==
PROVIDERS: PCP Nurse Practitioner Family; Visit Provider Nurse Anesthetist, Certified Registered
DX: M46.1 Sacroiliitis, not elsewhere classified (principal)
CPT/HCPCS: 27096; G0260; J1100

== ENCOUNTER 2024-07-30 14:22 | Outpatient (POV) | payer OTHER, SELFPAY ==
[2024-07-30 15:13] VITALS: BP 104/79; PULSE 69; RESP 18; O2SAT 96; BMI 41.5
--- NOTE | 2024-07-30 15:44 | A.OFFVIS_ITS ---
[facility] Disclaimer: The information contained in this section may have been updated after the patient was seen, as this information can be updated by other users. Medical History (Updated 07/30/24 @ 15:46 by Angelica Kahn APRN) Hx of iron deficiency anemia Hypothyroid GERD (gastroesophageal reflux disease) HTN (hypertension) Anxiety Depression Anemia Surgical History Hx of tubal ligation Hx of section H/O bariatric surgery Family History Other Ischemic heart disease Social History Smoking Status: Never smoker second hand exposure: No alcohol intake: never current occupational status: employed Travel in the last 8 weeks?: None household members: spouse housing: house current occupational exposures/hazards: No caffeine: Yes PM Subjective & Objective Subjective Subjective:: Patient is a pleasant 48-year-old female who presents today for follow-up of bilateral SI injections on 07/15/2024. Today she rates her pain a 6 out of 10. She does state that this injection kicked in fairly immediately providing 80% relief. Patient does however state today that she feels like it is down to about 50%. Patient denies any new injuries or trauma. Patient does state she is still having a little bit more pain there at her low back and states this is worse with certain movements such as bending, twisting or lifting. Patient does state that it is interfering with her ability perform activities of daily living such as cooking and cleaning. Patient has continued conservative therapy including oral medication, heat and ice, topicals, TENS unit and at home stretching exercise for longer than 12 weeks. Patient has also seen chiropractor therapy as well as massage therapy. Her Richard has been reviewed and is appropriate. Patient did state that the compounded cream did help. Review of Systems: General: No recent weight changes, no fever, no sleep disturbances Respiratory: No cough, no shortness of air, no recurring pulmonary infections Cardiovascular/peripheral vascular: No chest pain, no palpitations, no edema, no shortness of breath Gastrointestinal: No new onset incontinence, normal bowel movements reported Genitourinary: No new onset incontinence Musculoskeletal: Low back pain Psychiatric: [Normal mood/affect] Neurological: [Denies weakness in extremities], [denies balance issues] Pain at rest (0-10 scale): 5 Objective Objective:: Physical Exam: General: Alert and oriented x3, no acute distress, pleasant and cooperative Lungs: Respirations even and unlabored, symmetrical chest expansion Eyes: PERRL Musculoskeletal: Flexion and extension of lumbar [spine] somewhat guarded secondary to pain, [antalgic gait noted] positive Kemps test Neurological: Speech clear, no gross sensory deficit Has patient had previous pain injection?: Yes Percent improvement in pain since last injection: 80% initially, 50% at 2 weeks Conservative treatment options previously tried: Home exercise plan Length of treatment: Longer than 12 weeks Meds Home Medications and Allergies Home Medications ?Medication ?Instructions ?Recorded ?Confirmed ?Type hydrochlorothiazide 25 mg tablet 25 mg PO DAILY fluid retention 07/08/20 07/30/24 History levothyroxine 75 mcg tablet 75 mcg PO DAILY hypothyroid 07/08/20 07/30/24 History omeprazole 20 mg capsule,delayed 20 mg PO DAILY GERD 07/08/20 07/30/24 History release cetirizine 10 mg tablet 10 mg PO DAILY seasonal allergies 01/26/23 07/30/24 History bisoprolol fumarate 10 mg tablet 10 mg PO DAILY #90 tabs 01/03/24 07/30/24 Rx multivitamin-calcium, 1 tab PO DAILY Supplement 01/03/24 07/30/24 History kdlwurq-YX-her isoflavone 400 mcg-60 mg tablet (One-A-Day Menopause Formula) polysaccharide iron complex 180 mg 180 mg PO DAILY Anemia 01/03/24 07/30/24 History iron capsule (Pro Fe) CombiPatch 0.05 mg-0.14 mg/24 hr 1 patch transdermal .2xweekly #8 ea 02/25/24 07/30/24 Rx transdermal (estradiol-norethindrone acet) New Prescriptions to Start Prescriptions: Allergies Allergy/AdvReac Type Severity Reaction Status Date / Time No Known Allergies Allergy Verified 02/22/24 14:24 Assessment and Plan *Assessment and plan (1) Lumbar facet arthropathy: Status: Acute Category: Medical Code(s): M47.816 - Spondylosis without myelopathy or radiculopathy, lumbar region Plan Patient is experiencing significant pain in her low back that is worse with bending, twisting or lifting. Patient did have limited range of motion of her lumbar spine with a positive Kemps test during today's visit. I did discuss with the patient that I do believe she would benefit from a lumbar medial branch block. Risk and benefits were discussed with the patient and she would like to proceed forward with this plan of care. Patient has tried and failed conservative therapy including oral medications, heat and ice, topicals, chiropractor therapy and at home stretching exercise for longer than 12 weeks that was physician guided. Patient has been experiencing chronic low back pain for longer than 6 months. Patient was counseled that if she does get significant relief with her first lumbar medial branch block that we will plan on repeating it with the plan to progress forward to a lumbar RFA at a later date. Patient agrees with this plan of care. Patient will be scheduled for her first diagnostic lumbar medial branch block bilaterally L4-L5 and L5-S1 under fluoroscopy. Patient's updated x-ray imaging did show moderate facet sclerosis throughout the mid to lower lumbar spine. Patient has been instructed to contact the clinic with any concerns before the next appointment. Dr. Hurst has reviewed this note and agrees with this plan of care. This note was dictated using voice recognition software and make contain errors or omissions. All injections are used with Lidocaine, Bupivacaine and dexamethasone. Occasionally urine drug screen is needed to verify patient's compliance with our office pain contract. This is ordered based off specific treatments related to chronic pain with the potential to abuse certain medications.
== END 2024-07-30 23:59 | disposition home or self-care (01) ==
LOC: SC.PAIN 14:23
PROVIDERS: PCP Nurse Practitioner Family; Visit Provider Nurse Practitioner Family
DX: M47.816 Spondylosis without myelopathy or radiculopathy, lumbar region (principal); Z73.89 Other problems related to life management difficulty
CPT/HCPCS: 99212; G0463

== ENCOUNTER 2024-09-02 08:50 | Day surgery (SDC) | payer OTHER, SELFPAY ==
[2024-09-02 08:51] VITALS: BP 117/74; PULSE 74; RESP 18; TEMP 36.8; O2SAT 97; BMI 41.3
[2024-09-02 09:03] VITALS: BP 117/70; PULSE 61; RESP 18; O2SAT 98
[2024-09-02] MEDS: DEXAMETHASONE 10MG/ML 1ML VIAL 10 MG (09:03)
[2024-09-02] MEDS: LIDOCAINE 1% 5ML PF VIAL 5 ML (09:03)
[2024-09-02] MEDS: BUPIVACAINE 0.25% 10ML INJ 25 MG IJ (09:03)
[2024-09-02 09:05] VITALS: BP 117/70; PULSE 60; RESP 18; O2SAT 98
--- NOTE | 2024-09-02 09:08 | P.PCN_ITS ---
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 Lumbar radiculopathy. Lumbar spondylosis. Multilevel lumbar facet arthropathy. Post-procedure Diagnosis:: Same Indications for Procedure:: Patient is a very pleasant 48-year-old female who comes our clinic today for ROUND ONE of lumbar medial branch blocks/facet injections at the L4-5, L5-S1 level bilaterally. Patient describes low lumbar back pain that is constant, dull, aching. She reports having difficulty with lumbar flexion, extension, left and right rotation. She rates her pain 7/10. Procedure Details:: Informed consent was obtained and the risk and benefits of the procedure was ex plained to the patient. Patient was taken to the procedure room where noninvasive monitors were placed, including noninvasive blood pressure cuff as well as pulse oximeter. The area over the lumbar spine was cleansed using chlorhexidine as a cleansing solution. I anesthetized the skin and subcutaneous tissues with 1% Lidocaine. I placed 22-gauge spinal needles into the facet joint/ medial branches of L4-L5, and L5-S1] bilaterally. Needle placement was confirmed with fluoroscopy. After confirmation of needle placement, each site was injected with 1 mL of 1% lidocaine and 0.25 % Marcaine and 10 mg of Depo- Medrol. A total of 80 mg of depo medrol was used for bilateral medial branch blocks of L4-L5, and L5-S1] bilaterally. Patient tolerated the procedure without difficulty. There were no complications. Plan and Disposition:: Patient was discharged without incident.
[2024-09-02 09:09] VITALS: BP 120/79; PULSE 65; RESP 16; O2SAT 96
== END 2024-09-02 09:09 | disposition home or self-care (01) ==
PROVIDERS: PCP Nurse Practitioner Family; Visit Provider Nurse Anesthetist, Certified Registered
DX: M47.26 Other spondylosis with radiculopathy, lumbar region (principal); M51.16 Intervertebral disc disorders with radiculopathy, lumbar region; F41.9 Anxiety disorder, unspecified; F32.A Depression, unspecified; I10 Essential (primary) hypertension; D50.9 Iron deficiency anemia, unspecified; K21.9 Gastro-esophageal reflux disease without esophagitis; E03.9 Hypothyroidism, unspecified; J30.2 Other seasonal allergic rhinitis; Z79.890 Hormone replacement therapy; Z79.899 Other long term (current) drug therapy
CPT/HCPCS: 64493; 64494; J0665; J1100; J2003

== ENCOUNTER 2024-09-22 13:38 | Outpatient (POV) | payer OTHER, SELFPAY ==
--- OUTSIDE RECORDS SUMMARY | 2024-09-22 13:41 | XMS_ITS | Encounter Summary ---
Author Organization [employer] ([place], [place], [place], [place]) Address [address] [place] [address] Care Team Providers Care Net Manager Name Role Phone Unavailable Primary Care Provider Unavailabl e Encounter Details Date Type Department Care Team (Late st Contact Info) Description 06/13/2022 Outside Orders [facility] Central Scheduling [address] [place] [address] Marion Ibanez, MANNIE [address] [facility] [address] [place] [address] Mastodynia (Primary Dx) Social History Tobacco Use Types Packs/Day Years Used Date Smoking Tobacco: Never Assessed Comments Unknown Sex and Gender Information Value Date Recorded Sex Assigned at Not on file Legal Sex Female 1:58 PM CDT Gender Identity Not on file Sexual Orientation Not on file documented as of this encounter Plan of Treatment Not on file documented as of this encounter Visit Diagnoses Diagnosis Mastodynia- Primary documented in this encounter
--- OUTSIDE RECORDS SUMMARY | 2024-09-22 13:41 | XMS_ITS | Data Portability ---
Author Organization [place] - [facility] & [place] [facility] Address [address] [place] [id number] Assessment No assessment recorded. Plan of Treatment Reminders Order Date Submit Date Provider Last Modified By Organization Details Last Modified Time Details Appointments None recorded. Lab influenza virus A + B + SARS-CoV-2 (COVID19) Ag panel, rapid IA, upper respiratory specimen 2022 023 [id number] Not available 3 16:37:08 rapid strep group A, throat 2022 023 2 Not available 3 16:37:08 Referral None recorded. Procedures None recorded. Surgeries None recorded. Imaging None recorded. Medication Orders Flonase Allergy Relief 50 mcg/actuati on nasal spray,suspe nsion 2022 023 [email or web address] 2 [facility]/Pharmacy #[id number], [address] [place], [address], 3 16:38:05 Sudafed 12 Hour 120 mg tablet,exte nded release 2022 023 [facility]/Pharmacy #[id number], [address] [place], [address], 3 16:23:28 promethazin e-DM 6.25 mg-15 mg/5 mL oral syrup 2022 023 [facility]/Pharmacy #[id number], [address] [facility] [place], [address], 16:23:27 Patient TargetsNo targets recorded. Patient Instructions Encounter Date Encounter Id Patient Instructions Last Modified By Organization Details Last Modified Time 03/24/2022 [id number] Viral Respirator y Infection: Care Instructions Your Care Instructions Viruses are very small organisms. They grow in number after they enter your body. There are many types that cause different illnesses, such as colds and the mumps. The symptoms of a viral respiratory infection often start quickly. They include a fever, sore throat, and runny nose. You may also just not feel well. Or you may not want to eat much. Most viral respiratory infections are not serious. They usually get better with time and self-care. Antibiotics are not used to treat a viral infection. That's because antibiotics will not help cure a viral illness. In some cases, antiviral medicine can help your body fight a serious viral infection. Follow-up care is a carranza part of your treatment and safety. Be sure to make and go to all appointments, and call your doctor if you are having problems. It's also a good idea to know your test results and keep a list of the medicines you take. How can you care for yourself at home? Rest as much as possible until you feel better. Be safe with medicines. Take your medicine exactly as prescribed. Call your doctor if you think you are having a problem with your medicine. You will get more details on the specific medicine your doctor prescribes. Take an wktu-nfk-xrglucz pain medicine, such as acetaminophen (Tylenol), ibuprofen (Advil, Motrin), or naproxen (Aleve), as needed for pain and fever. Read and follow all instructions on the label. Do not give aspirin to anyone younger than 20. It has been linked to Mirza syndrome, a serious illness. Drink plenty of fluids. Hot fluids, such as tea or soup, may help relieve congestion in your nose and throat. If you have kidney, heart, or liver disease and have to limit fluids, talk with your doctor before you increase the amount of fluids you drink. Try to clear mucus from your lungs by breathing deeply and coughing. Gargle with warm salt water once an hour. This can help reduce swelling and throat pain. Use 1 teaspoon of salt mixed in 1 cup of warm water. Do not smoke or allow others to smoke around you. If you need help quitting, talk to your doctor about stop-smoking programs and medicines. These can increase your chances of quitting for good. To avoid spreading the virus Cough or sneeze into a tissue. Then throw the tissue away. If you don't have a tissue, use your hand to cover your cough or sneeze. Then clean your hand. You can also cough into your sleeve. Wash your hands often. Use soap and warm water. Wash for 15 to 20 seconds each time. If you don't have soap and water near you, you can clean your hands with alcohol wipes or gel. When should you call for help? Call your doctor now or seek immediate medical care if: You have a new or higher fever. Your fever lasts more than 48 hours. You have trouble breathing. You have a fever with a stiff neck or a severe headache. You are sensitive to light. You feel very sleepy or confused. Watch closely for changes in your health, and be sure to contact your doctor if: You do not get better as expected. Not available 03/24/2022 16:21:48 Reason for Referral None Reported. Results Created Date Observation Date Name Description Value Unit Range Abnormal Flag Note LastModifiedBy Organization Detail LastModifiedTime 03/24/19 23 03/24/2022 rapid strep group A, throa t Strep negati ve Not Available [facility] [address] [facility] [address], [place], [address], 03/24/2022 16:26:19 03/24/19 23 03/24/2022 influ otilio virus A + B + SARS- CoV-2 (COVI D19) Ag panel , rapid IA, upper respi rator y speci men FLU A negati ve Not Available [facility] [address], [place], [address], 03/24/2022 15:58:32 03/24/19 23 03/24/2022 influ otilio virus A + B + SARS- CoV-2 (COVI D19) Ag panel , rapid IA, upper respi rator y speci men FLU B negati ve Not Available [facility] [address], [place], [address], 03/24/2022 15:58:32 03/24/19 23 03/24/2022 influ otilio virus A + B + SARS- CoV-2 (COVI D19) Ag panel , rapid IA, upper respi rator y speci men SARS COV + SARS OV 2 negati ve Not Available [facility] [address], [place], [address], 03/24/2022 15:58:32 Result Notes None recorded. Medical Equipment None Reported. Allergies No known drug allergies Medications Name Sig Start Date Stop Date Status Note LastModified by Organization Details LastModified Time promethazin e-DM 6.25 mg-15 mg/5 mL oral syrup TAKE 5 ML EVERY 6 HOURS BY ORAL ROUTE IN THE EVENING FOR 10 DAYS. active Not Available Not Available No t Available prednisone 10 mg tablet TAKE 1 TABLET BY MOUTH TWICE A DAY FOR 3 DAYS TAKE 1 TABLET EVERY DAY FOR 4 DAYS active Not Available Not Available No t Available clindamycin HCl 300 mg capsule TAKE 1 CAPSULE BY MOUTH THREE TIMES A DAY active Not Available Not Available No t Available polyethylen e glycol 3350 17 gram oral powder packet TAKE 5 PACKETS 3 TIMES A DAY BY ORAL ROUTE DIRECTED FOR 1 DAY. active Not Available Not Available No t Available cetirizine 10 mg tablet TAKE 1 TABLET BY MOUTH EVERY DAY active Not Available Not Available No t Available azithromyci n 250 mg tablet TAKE 2 TABLETS BY MOUTH TODAY, THEN TAKE 1 TABLET DAILY FOR 4 DAYS 03/24 completed Not Available Not Available Not Available prednisone 20 mg tablet TAKE 1 TABLET BY MOUTH TWICE A DAY 03/24 completed Not Available Not Available Not Available phentermine 37.5 mg tablet TAKE 1 TABLET BY MOUTH EVERY DAY active Not Available Not Available No t Available bisoprolol fumarate 10 mg tablet TAKE 1 TABLET DAILY active Not Available Not Available No t Available levothyroxi ne 75 mcg tablet TAKE 1 TABLET BY MOUTH EVERY DAY active Not Available Not Available No t Available bupropion HCl 75 mg tablet TAKE 1 TABLET BY MOUTH EVERY DAY active Not Available Not Available No t Available omeprazole 20 mg capsule,del ayed release TAKE 1 CAPSULE BY MOUTH EVERY DAY active Not Available Not Available No t Available hydrochloro thiazide 25 mg tablet TAKE 1 TABLET BY MOUTH EVERY DAY active Not Available Not Available No t Available cefdinir 300 mg capsule TAKE 1 CAPSULE BY MOUTH EVERY 12 HOURS FOR 10 DAYS active Not Available Not Available No t Available fluticasone propionate 50 mcg/actuati on nasal spray,suspe nsion SPRAY 1 SPRAY BY INTRANASA L ROUTE EVERY DAY active Not Available Not Available No t Available Sudafed 12 Hour 120 mg tablet,exte nded release Take 1 tablet every 12 hours by oral route as directed for 15 days. 2022 active Not Available Not Available Not [facility] COVID-19 At-Home Test kit FOLLOW INSTRUCTI ONS INCLUDED WITH THE PACKAGE. active Not Available Not Available No t Available Vitals Date Recorded Body height Body mass index (BMI) Body weight Body temperature Oxygen saturation Oxygen saturation in Arterial blood by Pulse oximetry Heart rate Systolic And Diastolic Provider Name and Address Organization Details Last Updated DateTime 3 170.18 cm 41.6 kg/m2 881836. 41 g 98.1 [degF] 98 % 98 % 125 /min 139/92 mm[Hg] Juliet Medrano [facility] & [place] 3 15:43:46 Social History None recorded. Functional Status None recorded. Mental Status None recorded. Family History Nothing Reported. Medical History No medical history recorded. Gynecological HistoryNo gynecological history recorded. Obstetrics History GPAL:G 0 P 0 0 0 0 Past Encounters Encounter ID Performer Location Encounter Start Date Encounter Closed Date Diagnosis/Indication Diagnosis SNOMED-CT Code Diagnosis ICD10 Code Diagnosis Note [id number] Nu Posadas in, [employer] [facility] [address] [facility] [address] [place] [address] 03/24/2022 15:35:14 03/24/2022 16:29:15 Cough 00824717 R05.9 Viral uppe r respiratory tract infection 803206653 J06.9 Health Concerns Section Related Observation LastModified by Organization Detai ls LastModified Time None Recorded Concern Status LastModified by Organization Details LastModified Time None Recorded Advance Directives Directive None Recorded Payers Insurance Date Sequence Insurance Name Policy Number Policy Mcdowell Covered Member ID Mcdowell Member ID Guarantor Name 03/24/2022 1 [employer] [facility] (MEDICAID HMO) Bella Sahni Jose Angelxiomaralinda [id number] Bella Figueredolinda 03/24/2022 1 [employer] [facility] (MEDICAID HMO) Bella Sahni Isiah [id number] Bella Joyce 02/01/2023 1 [employer] (POS) [id number] Bella Bora Joyce [id number] Bella L Isiah Notes Date Note Type Note Provider Name and Address Organization Details Recorded Time 03/24/2022 text/html patient presents to clinic for cough, congestion, and sore throat. Deneis any fever. Reports fever up to 101.8. 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 Nu Salvador, [employer] [address] , [place], [address], [place] - [facility] - [place] & [place] 03/24/2022 16:38:31 OBGyn Episode No OBEpisode recorded.
--- OUTSIDE RECORDS SUMMARY | 2024-09-22 13:41 | XMS_ITS | Clinical Summary ---
Author Organization [employer] ([place], [place], [place], [place]) Address [address] [place] [address] Care Team Providers Care Cd Reactor Operator Head Name Role Phone Unavailable Primary Care Provider Unavailabl e Social History Tobacco Use Types Packs/Day Years Used Date Smoking Tobacco: Never Assessed Food Insecurity Answer Date Recorded Food run out past 12 months Not on file 03/20 Food did not last past 12 months Not on file 04/07/2023 Employment Answer Date Recorded Help finding and keeping a job Not on file 0 04/07/2023 Family and Community Support Answer Chaparro e Recorded Help with Day to Day Activities Not on file 04/07/2023 Feeling Lonely or Isolated Not on file 04/07 Educational Attainment Answer Date Parmjit rded Speak language other than Turkish at home Not on file 04/07/2023 Want help with school or training Not on file 04/07/2023 Substance Use Answer Date Recorded Used prescription meds for non-medical reasons N ot on file 04/07/2023 Used illegal drugs past 12 months Not on file 04/07/2023 Comments Unknown Sex and Gender Information Value Date Recorded Sex Assigned at Not on file Legal Sex Female 1:58 PM CDT Gender Identity Not on file Sexual Orientation Not on file Plan of Treatment Not on file Insurance [employer]
--- OUTSIDE RECORDS SUMMARY | 2024-09-22 13:41 | XMS_ITS | Patient Health Record ---
Author Organization [facility] Address [address] [place] [address] Care Team Providers Care Substation Inspector Name Role Phone Marion Ibanez Unavailable [phone] Allergies No Known Allergies Reason For Referral No Information Medications Medication SIG (Take, Route, Frequency, Duration) Notes Start Date End Date Status ZyrTEC 10 MG Tablet Chewable 1 tablet Or ally Once a day Active Omeprazole 20 MG Capsule Delayed Release 1 capsule 30 minutes before morning meal Orally Once a day Active Metamucil Active Phentermine HCl 37.5 MG Tablet 1 tablet before breakfast Orally Once a day Active Levothyroxine Sodium 25 MCG Tablet 1 tablet in the morning on an empty stomach Orally Once a day Active Colace 100 MG Capsule 1 capsule as neede d Orally Once a day Active B12 Active Immunizations Vaccine Route Administration Date Status Comme nts Influenza, seasonal Unknown 03/19/2020 Administered SARS-COV-2 Unknown 03/19/2021 Administered 2021 Varicella Unknown 03/19/1977 Administered 1977 Social History Tobacco Use: Social History Observation Description Date Details (start date - stop date) Never Smoker NA - NA Sex Assigned At : Social History Observation Description Sex Assigned At Female Social History Drugs/Alcohol: Social Info Question Answer Notes Drugs Have you used drugs other than those for medical reasons in the past 12 months? No Alcohol Screen Did you have a drink containing alcohol in the past year? No Points 0 Interpretation Negative Tobacco Use: Social Info Question Answer Notes Tobacco Use/Smoking Are you a nonsmoker Additional Details Category Social Info Options Details Miscellaneous: Domestic violence: No Section Notes: Do you have any catholic or culture customs that your provider should know about?: No Do you now or have you ever smoked or used tobacco products?: No Have you ever used any recreational drugs?: No Have you had a drink containing alcohol in the last year?: No Would you object to blood products in the event of an emergency?: No Do you have any catholic or culture customs that your provider should know about?: No Do you now or have you ever smoked or used tobacco products?: No Have you ever used any recreational drugs?: No Have you had a drink containing alcohol in the last year?: No Would you object to blood products in the event of an emergency?: No Do you have any catholic or culture customs that your provider should know about?: No Do you now or have you ever smoked or used tobacco products?: No Have you ever used any recreational drugs?: No Have you had a drink containing alcohol in the last year?: No Would you object to blood products in the event of an emergency?: No Problems Problem Type SNOMED Code ICD Code Onset Dates Problem Status W/U Status Risk Notes Problem Menopausal symptom (04187234) Menopausal symptoms (N95.1) Active confirmed Problem Hypothyroidism (10101268) Hypothyroidism, unspecified type (E03.9) Active confirmed Plan Of Treatment No Information Insurance Providers Payer Name Payer Address Payer Phone Subscriber Number Group Number Insured Name Patient Relationship to Insured Coverage Start Date Coverage End Date [employer] [address] [place], [place] [id number] Bella Joyce Self - patient is the insured Medical (General) History Medical History History ICD Code Fibroids Current Medication: Levothyr oxine 75mcg daily , Omeprazole 20 mg daily , HCTZ 25mg daily , Zyrtec 10 mg daily , Colace 100mg daily, Metamucil capsule one daily , Centrum Silver MV daily , B12 500mg gummies daily GERD/Acid Reflux Thyroid Disease Surgical History Surgery Date(Month/Year) Bilateral Tubal ligation Other: Gastrectomy- 2016
--- OUTSIDE RECORDS SUMMARY | 2024-09-22 13:41 | XMS_ITS | Referral Summary ---
Author Organization [employer] ([place], [place], [place], [place]) Address [address] [place] [address] Care Team Providers Care Food And Beverage Analyst Name Role Phone Unavailable Primary Care Provider [...] Date Parmjit rded Speak language other than Kyr[place] at home Not on file 04/07/2023 Want [...]
--- OUTSIDE RECORDS SUMMARY | 2024-09-22 13:42 | XMS_ITS | Data Portability ---
Author Organization [facility] Address [address] [place] [address] Assessment No assessment recorded. Plan of Treatment Reminders Order Date Submit Date Provider Last Modified By Organization Details Last Modified Time Details Appointments None recorded. Lab HbA1c (hemoglobin A1c), blood 2022 023 [facility], [address] [place] [address], [phone], 3 16:35:07 drug screen, urine 2022 023 [facility], [address] [place] [address], [phone], 3 16:35:07 Referral None recorded. Procedures None recorded. Surgeries None recorded. Imaging None recorded. Medication Orders Wegovy 0.25 mg/0.5 mL subcutaneou s pen injector 2022 024 [id number], [address] [place] [address], [address], 4 15:04:50 bupropion HCl 75 mg tablet 2022 023 april [id number], [address] [place], [address], 4 15:03:53 phentermine 37.5 mg tablet 2022 023 [id number], [address] [place], [address], 4 15:04:01 hydrochloro thiazide 25 mg tablet 2022 023 [facility], [address] [place], [address], 3 16:35:09 phentermine 37.5 mg tablet 2022 023 [facility] [address] [place], [address], 4 15:04:01 omeprazole 20 mg capsule,del ayed release 2022 023 [facility] [address] [place], [address], 3 16:35:10 Synthroid 75 mcg tablet 2022 023 [facility] [address] [place], [address], 3 16:35:10 Patient TargetsNo targets recorded. Patient Instructions Encounter Date Encounter Id Patient Instructions Last Modified By Organization Details Last Modified Time 06/16/2022 [id number] learning about low-carbohydrate diets efryman Not available 06/16/2022 16:35:40 learning about low-carbohydrate foods efryman Not available 06/16/2022 16:35:40 controlled carbohydrate diet efryman Not available 06/16/2022 16:35:40 08/25/2022 [id number] learning about healthy weight efryman Not available 08/25/2022 10:51:03 body mass index: care instructions efryman Not available 08/25/2022 10:51:03 10/20/2022 [id number] learning about healthy weight efryman Not available 10/20/2022 17:01:08 body mass index: care instructions efryman Not available 10/20/2022 17:01:08 Reason for Referral None Reported. Results Created Date Observation Date Name Description Value Unit Range Abnormal Flag Note LastModifiedBy Organization Detail LastModifiedTime 06/17/1906/16/2022 drug scree n, urine Amphetamines : negati ve Not Available [address], [address], 06/16/2022 15:57:28 06/17/19 23 06/16/2022 drug scree n, urine Cannabinoids : negati ve Not Available [address], [address], 06/16/2022 15:57:28 06/17/19 23 06/16/2022 drug scree n, urine Cocaine: negati ve Not Available [address], [address], 06/16/2022 15:57:28 06/17/19 23 06/16/2022 drug scree n, urine Opiates: negati ve Not Available [address], [address], 06/16/2022 15:57:28 06/17/19 23 06/16/2022 drug scree n, urine Phenocyclidi ne: negati ve Not Available [address], [address], 06/16/2022 15:57:28 06/17/19 23 06/16/2022 drug scree n, urine Barbiturates : negati ve Not Available [address], [address], 06/16/2022 15:57:28 06/17/19 23 06/16/2022 drug scree n, urine Benzodiazepi jerome: negati ve Not Available [address], [address], 06/16/2022 15:57:28 06/17/19 23 06/16/2022 drug scree n, urine Ethanol: negati ve Not Available [address], [address], 06/16/2022 15:57:28 06/17/19 23 06/16/2022 drug scree n, urine Hallucinogen s: negati ve Not Available [address], [address], 06/16/2022 15:57:28 06/17/19 23 06/16/2022 drug scree n, urine Inhalants: negati ve Not Available [address], [address], 06/16/2022 15:57:28 06/17/19 23 06/16/2022 drug scree n, urine Anabolic Steroids: negati ve Not Available [address], [address], 06/16/2022 15:57:28 06/17/19 23 06/16/2022 drug scree n, urine Other: negati ve Not Available [address], [address], 06/16/2022 15:57:28 06/17/19 23 06/16/2022 HbA1c (hemo globi n A1c), blood HbA1C 5.4 % Not Available [address], [address], 06/16/2022 15:33:53 01/23/20 23 01/12/2023 , [facility] ardio gram No observ ation record ed. [facility] [address], [place], [address], 01/22/2023 14:59:53 03/21/19 25 03/14/2024 MAMMO , scree gita, tomos ynthe sis, bilat eral No observ ation record ed. [facility] [address], [place], [address], 03/21/2024 13:49:29 06/14/19 25 06/13/2024 XR, lumbo sacra l spine , 2 or 3 view No observ ation record ed. [facility] [address], [place], [address], 06/16/2024 08:58:07 Result Notes None recorded. Problems Name Problem SNOMED Code Status Onset Date Resolution Date Notes Provider Name and Address Organization Details Recorded Time Hypothyroidism 20874533 Active 2022 Nicole Jones, MARKET[employer] [address], [place], [address], [place] - [facility] 3 16:32:08 Acid reflux 827304924 Active 2022 Nicole Jones, [employer] [address], [place], [address], [place] - [facility] 3 16:32:06 Body fluid retention 01272201 Active 2022 Nicole Jones APRN [address], [place], [address], [place] - [facility] 3 16:33:03 Obesity 918809667 Active 2022 Nicole Jones [employer] [address], [place], [address], [place] - [facility] 3 16:32:04 Problem Notes None recorded. Procedures Surgical History Date Name Laterality Status Provider Name and Address Organization Details Recorded Time 2023 Date of Last Mammogram completed Kaykay Epperson [place] - [facility] 5 13:22:11 2022 Date of Last Colonoscopy completed Kaykay Stears [place] - [facility] 3 14:35:36 2022 esophagogastroduodenoscopy completed Brend a Stears [place] - [facility] 3 14:34:42 2022 colonoscopy completed Kaykay Stears [place] - [facility] 3 14:34:57 2015 Endoscopy completed Kaykay Stears [place] - [facility] 3 14:34:05 1998 Tubal Ligation completed Kaykay Stears [place] - [facility] 3 14:34:05 1994 Caesarean Section completed Kaykay Stears [place] - [facility] 3 14:34:05 Imaging Results None recorded. Procedure Notes None recorded. Medical Equipment None Reported. Allergies No known drug allergies Medications Name Sig Start Date Stop Date Status Note LastModified by Organization Details LastModified Time fluconazole 100 mg tablet TAKE 1 TABLET BY MOUTH EVERY DAY FOR 3 DAYS 10/14 completed Not Available Not Available Not Available promethazin e-DM 6.25 mg-15 mg/5 mL oral syrup TAKE 5 ML EVERY 6 HOURS BY ORAL ROUTE IN THE EVENING FOR 10 DAYS. 06/16 completed Not Available Not Available Not Available prednisone 10 mg tablet TAKE 1 TABLET BY MOUTH TWICE A DAY FOR 3 DAYS TAKE 1 TABLET EVERY DAY FOR 4 DAYS 06/16 completed Not Available Not Available Not Available clindamycin HCl 300 mg capsule TAKE 1 CAPSULE BY MOUTH THREE TIMES A DAY 06/16 completed Not Available Not Available Not Available polyethylen e glycol 3350 17 gram oral powder packet TAKE 5 PACKETS 3 TIMES A DAY BY ORAL ROUTE DIRECTED FOR 1 DAY. 10/14 completed Not Available Not Available Not Available cetirizine 10 mg tablet TAKE ONE TABLET BY MOUTH EVERY DAY 2024 active Not Available Not Available Not Avai lable CombiPatch 0.05 mg-0.14 mg/24 hr transdermal apply 1 PATCH TRANSDERM ALLY twice WEEKLY active Not Available Not Available No t Available prednisone 20 mg tablet TAKE 1 TABLET BY MOUTH TWICE A DAY FOR 5 DAYS active Not Available Not Available No t Available phentermine 37.5 mg tablet TAKE 1 TABLET BY MOUTH EVERY DAY 10/14 completed Not Available Not Available Not Available bisoprolol fumarate 10 mg tablet TAKE ONE TABLET BY MOUTH EVERY DAY active Not Available Not Available No t Available levothyroxi ne 75 mcg tablet TAKE ONE TABLET BY MOUTH EVERY DAY 2024 active Not Available Not Available Not Avai lable bupropion HCl 75 mg tablet TAKE 1 TABLET BY MOUTH EVERY DAY 2023 active Not Available Not Available Not Avai lable fluoxetine 10 mg capsule TAKE 1 CAPSULE BY MOUTH EVERY DAY active Not Available Not Available No t Available omeprazole 20 mg capsule,del ayed release TAKE ONE CAPSULE BY MOUTH EVERY DAY active Not Available Not Available No t Available hydrochloro thiazide 25 mg tablet TAKE ONE TABLET BY MOUTH EVERY DAY active Not Available Not Available No t Available cefdinir 300 mg capsule Take 1 capsule every 12 hours by oral route for 10 days. 10/20 completed Not Available Not Available Not Available fluticasone propionate 50 mcg/actuati on nasal spray,suspe nsion SPRAY 1 SPRAY INTO EACH NOSTRIL EVERY DAY active Not Available Not Available No t Available cyclobenzap rine 5 mg tablet TAKE 1 TABLET BY MOUTH EVERY DAY AT BEDTIME FOR BACK PAIN FOR 5 DAYS active Not Available Not Available No t Available Pro Fe 180 mg iron capsule TAKE 1 CAPSULE BY MOUTH EVERY DAY active Not Available Not Available No t Available Wegovy 0.25 mg/0.5 mL subcutaneou s pen injector Inject 0.25 mg every week by subcutane ous route. 10/14 completed Not Available Not Available Not Available COVID-19 At-Home Test kit FOLLOW INSTRUCTI ONS INCLUDED WITH THE PACKAGE. active Not Available Not Available No t Available Vitals Date Recorded Respiratory rate Body weight Body mass index (BMI) Body height Body temperature Heart rate Oxygen saturation Oxygen saturation in Arterial blood by Pulse oximetry Systolic And Diastolic Provider Name and Address Organization Details Last Updated DateTime 3 18 /min 199476. 02 g 40.7 kg/m2 170.18 cm 97.8 [degF] 96 /min 98 % 98 % 124/76 mm[Hg] Kaykay Stears [place] - [facility] 3 14:40:30 Date Recorded Body height Body mass index (BMI) Body weight Body temperature Heart rate Oxygen saturation Oxygen saturation in Arterial blood by Pulse oximetry Respiratory rate Systolic And Diastolic Provider Name and Address Organization Details Last Updated DateTime 3 170.18 cm 39.1 kg/m2 225310. 65 g 97.3 [degF] 79 /min 97 % 97 % 18 /min 110/70 mm[Hg] Christal Sheehan [facility] 3 09:25:34 Date Recorded Body height Body mass index (BMI) Body weight Body temperature Heart rate Oxygen saturation Oxygen saturation in Arterial blood by Pulse oximetry Respiratory rate Systolic And Diastolic Provider Name and Address Organization Details Last Updated DateTime 3 170.18 cm 38.5 kg/m2 502763. 72 g 97.4 [degF] 94 /min 97 % 97 % 18 /min 128/80 mm[Hg] Christal Sheehan [facility] 3 16:29:33 Social History Question Answer Notes LastModified by Organizat ion Details LastModified Time Tobacco Smoking Status Never Smoker Kaykay alexander [facility] 06/16/2022 14:34:05 Do You Have An Advance Directive? No Information n ot available 06/16/2022 Are You Blind Or Do You Have Difficulty Seeing? No Information n ot available 06/16/2022 Is Blood Transfusion Acceptable In An Emergency? Yes Information not available 06/16/2022 What Is Your Level Of Caffeine Consumption? Heavy Information not available 06/16/2022 How Much Tobacco Do You Chew? None Information not available 06/16/2022 In The 14 Days Before Symptom Onset, Have You Had Close Contact With A Laboratory-confirm ed COVID-19 While That Case Was Ill? No Information n ot available 08/25/2022 In The 14 Days Before Symptom Onset, Have You Had Close Contact With A Person Who Is Under Investigation For COVID-19 While That Person Was Ill? No Information not available 08/25/2022 Have You Been To An Area Known To Be High Risk For COVID-19? No Information not available 08/25/2022 Are You Deaf Or Do You Have Serious Difficulty Hearing? No Information not available 06/16/2022 What Type Of Diet Are You Following? REGULAR Information n ot available 06/16/2022 Which Illicit Or Recreational Drugs Have You Used? None Information not available 06/16/2022 Have You Processed Blood Or Body Fluids From An Ebola Virus Disease Patient Without Appropriate PPE? No Information not available 08/25/2022 Do You Reside In Or Have You Traveled To An Area Where Ebola Virus Transmission Is Active? No Information not available 08/25/2022 What Is The Highest Grade Or Level Of School You Have Completed Or The Highest Degree You Have Received? AA09378-2 Information not available 06/16/2022 Have There Been Any Changes To Your Family Or Social Situation? No Information no t available 06/16/2022 What Is The Fluoride Status Of Your Home? Unknown Information not available 06/16/2022 Have You Recently Or Are You Planning To Travel To An Area With Zika Virus? No Information not available 08/25/2022 How Many Years Have You Used Illicit Or Recreational Drugs? 0 Information not available 06/16/2022 Do You Have A Medical Power Of Ep Tech? No Information not available 06/16/2022 How Many Children Do You Have? 2 Information not available 06/16/2022 Do You Use Protection During Sex? No Information not available 06/16/2022 Do You Use Protection Against STDs? No Information not available 06/16/2022 What Is Your Relationship Status? Information not available 06/16/2022 Do You Use Your Seat Belt Or Car Seat Routinely? Yes Information not available 06/16/2022 Are You Sexually Active? Yes Information not available 06/16/2022 Do You Have Smoke And Carbon Monoxide Detectors In Your Home? Yes Information not available 06/16/2022 Are You Passively Exposed To Smoke? No Information no t available 06/16/2022 Do You Use Sunscreen Routinely? Yes Information not available 06/16/2022 Do You Have Difficulty Walking Or Climbing Stairs? No Information not available 06/16/2022 Which Type Of Protection Is Used? None- Tubal Ligation Information not available 06/16/2022 Sex: Female Functional Status Question Answer Note LastModified by Organizat ion Details LastModified Time Do you or have you ever used smokeless tobacco? Never used smokeless tobacco Information not available 06/16/2022 Are you currently employed? Yes Information not available 06/16/2022 Do you have transportation difficulties? No Information not available 06/16/2022 Are you able to care for yourself? Yes Information n ot available 06/16/2022 Do you have difficulty dressing or bathing? No Information not available 06/16/2022 Do you or have you ever used e-cigarettes or vape? Never used electronic cigarettes Information not available 06/16/2022 What is your exercise level? None Information not available 06/16/2022 Do you use any illicit or recreational drugs? No Information not available 06/16/2022 Do you or have you ever used any other forms of tobacco or nicotine? No Information not available 06/16/2022 What is your level of alcohol consumption? None Information not available 06/16/2022 Are you able to walk? YESWOREST Information not available 06/16/2022 Do you have difficulty doing errands alone? 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 [id number] Information not available 06/16/2022 Do you have difficulty concentrating, remembering or making decisions? No Information no t available 06/16/2022 Family History Relationship Description Onset Age of this Age Resolved Age Notes LastModified by Organization Details LastModified Time Paternal Grandfather Chronic obstructive pulmonary disease bstears Not available 2022 14:34:04 Maternal Grandmother Hypertensive disorder bstears Not available 2022 14:34:04 Maternal Grandmother Kidney disease bstears Not available 2022 14:34:04 Father Hypercholest erolemia bstears Not available 2022 14:34:04 Father Depressive disorder bstears Not available 2022 14:34:04 Father Arthritis bstears Not available 06/16/2022 14:34:04 Father Hypertensive disorder bstears Not available 2022 14:34:04 Father Obesity bstears Not available 0 06/16/2022 14:34:04 Father Heart disease 60 63 bstears Not available 2022 14:34:04 Father Diabetes mellitus bstears Not available 2022 14:34:04 Unspecified Relation Disorder of lung bstears Not available 2022 14:34:04 Unspecified Relation Osteoporosis bstears Not available 05/19 14:34:04 Unspecified Relation Malignant tumor of colon bstears Not available 2022 14:34:04 Sister Disorder of thyroid gland bstears Not available 2022 14:34:04 Sister Asthma bstears Not available 14:34:04 Sister Malignant neoplasm of ovary bstears Not available 2022 14:34:04 Sister Obesity bstears Not available 0 06/16/2022 14:34:04 Paternal Uncle Malignant neoplasm of lung bstears Not available 2022 14:34:04 Paternal Uncle Epilepsy bstears Not available 14:34:04 Paternal Grandmother Hypertensive disorder bstears Not available 2022 14:34:04 Medical History Condition Response Obesity Y Constipation Y Acid Reflux (GERD) Y Headaches Y Irritable Bowel Syndrome Y Thyroid Problems Y Gynecological History Statement/Question Response Abnormal Pap N Flow Moderate Date of Last Mammogram 03/14/2024 Date of LMP 06/27/2022 STIs/STDs N HPV Vaccine N Duration of Flow (days) 5 Current Control Method Tubal Ligat ion Age at Menarche 11 Age at First Child 18 Date of Last Colonoscopy 01/30/2023 Frequency of Cycle (Q days) 28 Most Recent Bone Density Sexually Active? Y Menses Monthly Y Sexual Problems? N Hormone Replacement Therapy N Obstetrics History GPAL:G 2 P 2 0 0 2 Type Value Multiple Births 0 Full Term 2 Induced 0 Spontaneous 0 Premature 0 Living 2 Ectopics 0 Total 2 Immunizations Vaccine Type Date Status Note Provider Nam e and Address Organization Details Recorded Time MMR 2 completed Christal Crawfordler null, [place] - [facility] 08/25/2022 09:08:24 COVID-19, mRNA, LNP-S, PF, 100 mcg/0.5mL dose or 50 mcg/0.25mL dose 1 completed Christal Aguila null, [place] - [facility] 08/25/2022 09:08:24 COVID-19, mRNA, LNP-S, PF, 100 mcg/0.5mL dose or 50 mcg/0.25mL dose 1 completed Christal Crawfordler null, [place] - [facility] 08/25/2022 09:08:24 Td (adult), 2 Lf tetanus toxoid, preservative free, adsorbed 2 completed Christal Sheehan null, [place] - [facility] 08/25/2022 09:08:24 Hep B, adult 2 completed Christaladelfo Sheehan null, [place] - [facility] 08/25/2022 09:08:24 Hep B, adult 2 completed Christal Aguila null, [place] - [facility] 08/25/2022 09:08:24 Past Encounters Encounter ID Performer Location Encounter Start Date Encounter Closed Date Diagnosis/Indication Diagnosis SNOMED-CT Code Diagnosis ICD10 Code Diagnosis Note [id number] Nicole Jones [address] [address] 06/16/2022 14:00:17 06/16/2022 16:00:41 Acid reflux 577795137 K21.9 Hypothyroidism 47917623 E03.9 Obesity 957496578 E66.9 Pt compliant with plan of [facility] reviewed and appropriat emedicatio n compliance discussedL ast uds: 3Control substance agreement and adipex consent on filediscus sed diet and exercise plan Long-term current use of drug therapy 823764703 Z79.899 Body fluid retention 434 25148 R60.9 [id number] Nicole Jones [address] [address] 08/25/2022 09:06:36 08/25/2022 10:32:59 Obesity 047139610 E66.9 Pt compliant with plan of careKasper reviewed and appropriat emedicatio n compliance discussedL ast uds: 3Control substance agreement and adipex consent on filediscus sed diet and exercise plan Body mass index 30+ - obesity 255174758 Z68.39 [id number] Nicole MANNIE Jones [address] [address] 10/20/2022 16:03:01 10/20/2022 17:04:42 Obesity 641448502 E66.9 Pt compliant with plan of careKasper reviewed and appropriat emedicatio n compliance discussedL ast uds: 3Control substance agreement and adipex consent on filediscus sed diet and exercise plan Body mass index 30+ - obesity 586416842 Z68.38 Mood disorder 82464439 F 39 Health Concerns Section Related Observation LastModified by Organization Detai ls LastModified Time None Recorded Concern Status LastModified by Organization Details LastModified Time None Recorded Advance Directives Directive N: Payers Insurance Date Sequence Insurance Name Policy Number Policy Mcdowell Covered Member ID Mcdowell Member ID Guarantor Name 10/23/2022 1 [employer] (POS II) [id number] Bella Isiah [id number] Bella Joyce Notes Date Note Type Note Provider Name and Address Organization Details Recorded Time 06/16/2022 text/html Bella is a 46 year old female who presents to the office today to establish care,would like to discuss ozembic or adipex for wt losshas thyroid lab results if Nicole would like to look at them.would like to be checked for dm, her mother and siblings all have dm Nicole Robert, MANNIE [address], [place], [address], [place] - [facility] 06/16/2022 16:36:06 08/25/2022 text/html 46 yr old female presents to follow up on weight loss. pt down 11 lbs. pt states she is only taking 1/2 tab due to side effects. pt states she is following a diet and exercise plan Nicole Jones APRN [address], [place], [address], [place] - [facility] 08/25/2022 10:51:44 10/20/2022 text/html 46 yr old female presents to follow up on weight loss. pt states the adipex causes her hr to rise when she drinks coffee and she wanted to try something else as she weans herself down from coffee Nicole Jones, [employer]ETING[employer] PERSON [address], [place], [address], [facility] - [facility] 10/23/2022 08:31:37 OBGyn Episode No OBEpisode recorded.
[2024-09-22 13:51] VITALS: BP 123/79; PULSE 85; RESP 14; O2SAT 100; BMI 41.5
--- NOTE | 2024-09-22 14:08 | A.OFFVIS_ITS ---
[facility] Disclaimer: The information contained in this section may have been updated after the patient was seen, as this information can be updated by other users. Medical History Hx of iron deficiency anemia Hypothyroid GERD (gastroesophageal reflux disease) HTN (hypertension) Anxiety Depression Anemia Surgical History Hx of tubal ligation Hx of section H/O bariatric surgery Family History Other Ischemic heart disease Social History Smoking Status: Never smoker second hand exposure: No alcohol intake: never current occupational status: other Travel in the last 8 weeks?: None household members: spouse housing: house current occupational exposures/hazards: No caffeine: Yes PM Subjective & Objective Subjective Subjective:: Patient is a pleasant 48-year-old female who presents today for follow-up of her first lumbar medial branch block bilaterally L4-L5 and L5-S1 on 09/02/2024. Today she rates her pain a 8 out of 10. Patient does state that the previous injection did significantly help and that it was basically immediate that she had 100% relief with those injections. Patient states it was great while she was nice and numb and able to move around easier. Patient does state that overall she feels like the injection did last nearly a full 2 weeks. Patient states she had very minimal pain in that area. She states she actually noticed more pain that was higher up and even into her neck following this injection. Patient denies any new falls or injuries. She does state that she is back to her baseline and would like to proceed forward with the next step. Patient states they low back symptoms are worse with movement such as bending, twisting and lifting. Patient has continued conservative treatment with no additional improvement. She is prescribed compounded cream. Her Richard has been reviewed and is appropriate. Review of Systems: General: No recent weight changes, no fever, no sleep disturbances Respiratory: No cough, no shortness of air, no recurring pulmonary infections Cardiovascular/peripheral vascular: No chest pain, no palpitations, no edema, no shortness of breath Gastrointestinal: No new onset incontinence, normal bowel movements reported Genitourinary: No new onset incontinence Musculoskeletal: Low back pain Psychiatric: [Normal mood/affect] Neurological: [Denies weakness in extremities], [denies balance issues] Pain at rest (0-10 scale): 8 Objective Objective:: Physical Exam: General: Alert and oriented x3, no acute distress, pleasant and cooperative Lungs: Respirations even and unlabored, symmetrical chest expansion Eyes: PERRL Musculoskeletal: Flexion and extension of lumbar [spine] somewhat guarded secondary to pain, positive Kemps test Neurological: Speech clear, no gross sensory deficit Has patient had previous pain injection?: Yes Percent improvement in pain since last injection: 100% Conservative treatment options previously tried: Home exercise plan Length of treatment: Longer than 12 weeks Meds Home Medications and Allergies Home Medications ?Medication ?Instructions ?Recorded ?Confirmed ?Type hydrochlorothiazide 25 mg tablet 25 mg PO DAILY fluid retention 07/08/20 09/22/24 History levothyroxine 75 mcg tablet 75 mcg PO DAILY hypothyroi d 07/08/20 09/22/24 History omeprazole 20 mg capsule,delayed 20 mg PO DAILY GERD 0 07/08/20 09/22/24 History release cetirizine 10 mg tablet 10 mg PO DAILY seasonal meagan rgies 01/26/23 09/22/24 History bisoprolol fumarate 10 mg tablet 10 mg PO DAILY #90 ta bs 01/03/24 09/22/24 Rx multivitamin-calcium, 1 tab PO DAILY Supplement 09/22/24 History zknfxqq-DO-ept isoflavone 400 mcg-60 mg tablet (One-A-Day Menopause Formula) polysaccharide iron complex 180 mg 180 mg PO DAILY Ane cisco 01/03/24 09/22/24 History iron capsule (Pro Fe) CombiPatch 0.05 mg-0.14 mg/24 hr 1 patch transdermal . 2xweekly #8 ea 02/25/24 09/22/24 Rx transdermal (estradiol-norethindrone acet) New Prescriptions to Start Prescriptions: Allergies Allergy/AdvReac Type Severity Reaction Status Date / Time No Known Allergies Allergy Verified 02/22/24 14:24 Assessment and Plan *Assessment and plan (1) Lumbar facet arthropathy: Status: Acute Category: Medical Code(s): M47.816 - Spondylosis without myelopathy or radiculopathy, lumbar region (2) Degenerative disc disease: Status: Acute Category: Medical Plan Patient did have a successful first lumbar medial branch block and I did review with her regarding repeat lumbar block. Risk and benefits were discussed with patient and he would like to proceed forward with this plan of care. Patient did have limited range of motion of her lumbar spine during today's visit with a positive Kemps test. Patient was counseled if she does get significant improvement with this second diagnostic block we will proceed forward with the lumbar RFA at a later date. Patient acknowledges understanding agrees with plan of care. Patient has continued at home stretching and exercise for longer than 12 weeks with no additional changes. She has had chronic low back pain for longer than 6 months. Patient did get 100% relief the day of her first injection. Patient did feel like it did ease down the pain for about 2 weeks before it started to increase in intensity. Patient is back to her baseline today rating her pain an 8 out of 10. Patient has failed oral medications, heat and ice, topicals. We will schedule her for the second lumbar medial branch block bilaterally L4-L5 and L5-S1 under fluoroscopy. Patient has been instructed to contact the clinic with any concerns before the next appointment. Dr. Hurst has reviewed this note and agrees with this plan of care. This note was dictated using voice recognition software and make contain errors or omissions. All injections are used with Lidocaine, Bupivacaine and dexamethasone unless diagnostic in which no steroids are used. Occasionally urine drug screen is needed to verify patient's compliance with our office pain contract. This is ordered based off specific treatments related to chronic pain with the potential to abuse certain medications.
== END 2024-09-22 23:59 | disposition home or self-care (01) ==
LOC: SC.PAIN 13:39
PROVIDERS: PCP Nurse Practitioner Family; Visit Provider Nurse Practitioner Family
DX: M47.816 Spondylosis without myelopathy or radiculopathy, lumbar region (principal)
CPT/HCPCS: 99212; G0463

== ENCOUNTER 2024-09-24 16:31 | Outpatient (CLI) | payer OTHER, SELFPAY ==
--- OUTSIDE RECORDS SUMMARY | 2024-09-24 16:32 | XMS_ITS | Clinical Summary ---
Author Organization [employer] ([place], [place], [place], [place]) Address [address] [place] [address] Care Team Providers Care Zinc Skimmer Name Role Phone Unavailable Primary Care Provider [...] Date Parmjit rded Speak language other than Moroccan at home Not on file 04/07/2023 Want [...]
--- OUTSIDE RECORDS SUMMARY | 2024-09-24 16:32 | XMS_ITS | Encounter Summary ---
Author Organization [employer] ([place], [place], [place], [place]) Address [address] [place] [address] Care Team Providers Care Program Or Project Administrator Name Role Phone Unavailable Primary Care Provider Unavailabl e Encounter Details Date Type Department Care Team (Late st Contact Info) Description 06/13/2022 Outside Orders [facility] Central Scheduling [address] [place] [address] Marion Ibanez, MANNIE [address] [facility] [address] [place] [address] Mastodynia (Primary Dx) Social History Tobacco Use [...]
--- OUTSIDE RECORDS SUMMARY | 2024-09-24 16:32 | XMS_ITS | Data Portability ---
Author Organization [place] [facility] & [place] [facility] Address [address] [place] [id number] Assessment No assessment recorded. Plan of Treatment Reminders Order Date Submit Date Provider Last Modified By Organization Details Last Modified Time Details Appointments None recorded. Lab influenza virus A + B + SARS-CoV-2 (COVID19) Ag panel, rapid IA, upper respiratory specimen 2022 023 [id number] 2 Not available 3 16:37:08 rapid strep group A, throat 2022 023 [email or web address] 2 Not available 3 16:37:08 Referral None recorded. Procedures None recorded. Surgeries None recorded. Imaging None recorded. Medication Orders Flonase Allergy Relief 50 mcg/actuati on nasal spray,suspe nsion 2022 023 [email or web address] 2 [facility]/Pharmacy #[id number], [address] [place], [address], 3 16:38:05 Sudafed 12 Hour 120 mg tablet,exte nded release 2022 023 [facility]/Pharmacy #[id number], [address] [place], [address], 3 16:23:28 promethazin e-DM 6.25 mg-15 mg/5 mL oral syrup 2022 023 [facility]/Pharmacy #[id number], [address] [facility] [place], [address], 16:23:27 Patient TargetsNo targets recorded. Patient Instructions Encounter Date Encounter Id Patient Instructions Last Modified By Organization Details Last Modified Time 03/24/2022 [id number] Viral Respirator y Infection: Care Instructions Your [...] specific medicine your doctor prescribes. Take an dpbt-bmh-wrrdktc pain medicine, such as acetaminophen (Tylenol), ibuprofen [...] You do not get better as expected. [email or web address] Not available 03/24/2022 16:21:48 Reason for Referral None Reported. Results Created Date Observation Date Name Description Value Unit Range Abnormal Flag Note LastModifiedBy Organization Detail LastModifiedTime 03/24/19 23 03/24/2022 rapid strep group A, throa t Strep negati ve Not Available [facility] [address] [facility] [address], [place], [address], 03/24/2022 16:26:19 03/24/19 23 03/24/2022 influ otilio virus A + B + SARS- CoV-2 (COVI D19) Ag panel , rapid IA, upper respi rator y speci men FLU A negati ve Not Available [facility] [address], [place], [address], 03/24/2022 15:58:32 03/24/19 23 03/24/2022 influ otilio virus A + B + SARS- CoV-2 (COVI D19) Ag panel , rapid IA, upper respi rator y speci men FLU B negati ve Not Available [facility] [address], [place], [address], 03/24/2022 15:58:32 03/24/19 23 03/24/2022 influ otilio virus A + B + SARS- CoV-2 (COVI D19) Ag panel , rapid IA, upper respi rator y speci men SARS COV + SARS OV 2 negati ve Not Available [facility] [address], [place], [address], 03/24/2022 15:58:32 Result Notes None recorded. Medical [...] Updated DateTime 3 170.18 cm 41.6 kg/m2 529238. 41 g 98.1 [degF] 98 % 98 % 125 /min 139/92 mm[Hg] Juliet Medrano [facility] & [place] 3 15:43:46 Social History None recorded. Functional Status None recorded. Mental Status None recorded. Family History Nothing Reported. Medical History No medical history recorded. Gynecological HistoryNo gynecological history recorded. Obstetrics History GPAL:G 0 P 0 0 0 0 Past Encounters Encounter ID Performer Location Encounter Start Date Encounter Closed Date Diagnosis/Indication Diagnosis SNOMED-CT Code Diagnosis ICD10 Code Diagnosis Note [id number] Nu Posadas in, SUPERVISOR REFINING [facility] [address] [facility] [address] [place] [address] 03/24/2022 15:35:14 03/24/2022 16:29:15 Cough 82263221 R05.9 Viral uppe r respiratory tract infection 169757607 J06.9 Health Concerns Section Related Observation LastModified by Organization Detai ls LastModified Time None Recorded Concern Status LastModified by Organization Details LastModified Time None Recorded Advance Directives Directive None Recorded Payers Insurance Date Sequence Insurance Name Policy Number Policy Mcdowell Covered Member ID Mcdowell Member ID Guarantor Name 03/24/2022 1 AET[employer] [facility] (MEDICAID HMO) Bella Sahni Jose Angelxiomaralinda [id number] Bella Figueredolinda 03/24/2022 1 GERRYTJARRED [facility] (MEDICAID HMO) Bella Sahni Isiah [id number] Bella Joyce 02/01/2023 1 [employer] (POS) [id number] Bella Bora Joyce [id number] Bella L Isiah Notes Date Note Type Note Provider Name and Address Organization Details Recorded Time 03/24/2022 text/html patient presents to clinic for cough, congestion, and sore throat. Deneis any fever. Reports fever up to 101.8. 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 Nu Salvador, SUPERVISOR REFINING [address] , [place], [address], [place] - [facility] - [place] & [place] 03/24/2022 16:38:31 OBGyn Episode No OBEpisode recorded.
--- OUTSIDE RECORDS SUMMARY | 2024-09-24 16:32 | XMS_ITS | Patient Health Record ---
Author Organization [facility] Address [address] [place] [address] Care Team Providers Care Storage Solutions Architect Name Role Phone Marion Ibanez Unavailable [phone] Allergies No Known Allergies Reason For Referral [...] No Section Notes: Do you have any zoroastrian or culture customs that your provider should know about?: No Do you now or have you ever smoked or used tobacco products?: No Have you ever used any recreational drugs?: No Have you had a drink containing alcohol in the last year?: No Would you object to blood products in the event of an emergency?: No Do you have any zoroastrian or culture customs that your provider should know about?: No Do you now or have you ever smoked or used tobacco products?: No Have you ever used any recreational drugs?: No Have you had a drink containing alcohol in the last year?: No Would you object to blood products in the event of an emergency?: No Do you have any zoroastrian or culture customs that your provider should [...] W/U Status Risk Notes Problem Menopausal symptom (75749986) Menopausal symptoms (N95.1) Active confirmed Problem Hypothyroidism (78407068) Hypothyroidism, unspecified type (E03.9) Active confirmed Plan Of Treatment No Information Insurance Providers Payer Name Payer Address Payer Phone Subscriber Number Group Number Insured Name Patient Relationship to Insured Coverage Start Date Coverage End Date [employer] POS [address] [place], [place] [id number] Bella Joyce Self - patient is the [...]
--- OUTSIDE RECORDS SUMMARY | 2024-09-24 16:33 | XMS_ITS | Referral Summary ---
Author Organization [employer] ([place], [place], [place], [place]) Address [address] [place] [address] Care Team Providers Care Engineer Internship Name Role Phone Unavailable Primary Care Provider [...] Date Parmjit rded Speak language other than Maldivian at home Not on file 04/07/2023 Want [...]
--- OUTSIDE RECORDS SUMMARY | 2024-09-24 16:33 | XMS_ITS | Data Portability ---
Author Organization [facility] Address [address] [place] [address] Assessment No assessment recorded. Plan of Treatment Reminders Order Date Submit Date Provider Last Modified By Organization Details Last Modified Time Details Appointments None recorded. Lab HbA1c (hemoglobin A1c), blood 2022 023 [facility], [address] [place] [address], [id number], 3 16:35:07 drug screen, urine 2022 023 [facility], [address] [place] [address], [id number], 3 16:35:07 Referral None recorded. Procedures None recorded. Surgeries None recorded. Imaging None recorded. Medication Orders Wegovy 0.25 mg/0.5 mL subcutaneou s pen injector 2022 024 [facility], [address] [place] [address], [address], 4 15:04:50 bupropion HCl 75 mg tablet 2022 023 april [facility], [address] [place], [address], 4 15:03:53 phentermine 37.5 mg tablet 2022 023 [facility], [address] [place], [address], 4 15:04:01 hydrochloro thiazide 25 mg tablet 2022 023 [facility], [address] [place], [address], 3 16:35:09 phentermine 37.5 mg tablet 2022 023 [facility] [address] [place], [address], 4 15:04:01 omeprazole 20 mg capsule,del ayed release 2022 023 [facility] [address] [place], [address], 3 16:35:10 Synthroid 75 mcg tablet 2022 023 [facility] [address] [place], [address], 3 16:35:10 Patient TargetsNo targets recorded. Patient Instructions Encounter Date Encounter Id Patient Instructions Last Modified By Organization Details Last Modified Time 06/16/2022 [id number] learning about low-carbohydrate diets efryman Not available 06/16/2022 16:35:40 learning about low-carbohydrate foods efryman Not available 06/16/2022 16:35:40 controlled carbohydrate diet efryman Not available 06/16/2022 16:35:40 08/25/2022 [id number] learning about healthy weight efryman Not available 08/25/2022 10:51:03 body mass index: care instructions efryman Not available 08/25/2022 10:51:03 10/20/2022 [id number] learning about healthy weight efryman Not available 10/20/2022 17:01:08 body mass index: care instructions efryman Not available 10/20/2022 17:01:08 Reason for Referral None Reported. Results Created Date Observation Date Name Description Value Unit Range Abnormal Flag Note LastModifiedBy Organization Detail LastModifiedTime 06/17/1906/16/2022 drug scree n, urine Amphetamines : negati ve Not Available [address], [address], 06/16/2022 15:57:28 06/17/19 23 06/16/2022 drug scree n, urine Cannabinoids : negati ve Not Available [address], [address], 06/16/2022 15:57:28 06/17/19 23 06/16/2022 drug scree n, urine Cocaine: negati ve Not Available [address], [address], 06/16/2022 15:57:28 06/17/19 23 06/16/2022 drug scree n, urine Opiates: negati ve Not Available [address], [address], 06/16/2022 15:57:28 06/17/19 23 06/16/2022 drug scree n, urine Phenocyclidi ne: negati ve Not Available [address], [address], 06/16/2022 15:57:28 06/17/19 23 06/16/2022 drug scree n, urine Barbiturates : negati ve Not Available [address], [address], 06/16/2022 15:57:28 06/17/19 23 06/16/2022 drug scree n, urine Benzodiazepi jerome: negati ve Not Available [address], [address], 06/16/2022 15:57:28 06/17/19 23 06/16/2022 drug scree n, urine Ethanol: negati ve Not Available [address], [address], 06/16/2022 15:57:28 06/17/19 23 06/16/2022 drug scree n, urine Hallucinogen s: negati ve Not Available [address], [address], 06/16/2022 15:57:28 06/17/19 23 06/16/2022 drug scree n, urine Inhalants: negati ve Not Available [address], [address], 06/16/2022 15:57:28 06/17/19 23 06/16/2022 drug scree n, urine Anabolic Steroids: negati ve Not Available [address], [address], 06/16/2022 15:57:28 06/17/19 23 06/16/2022 drug scree n, urine Other: negati ve Not Available [address], [address], 06/16/2022 15:57:28 06/17/19 23 06/16/2022 HbA1c (hemo globi n A1c), blood HbA1C 5.4 % Not Available [address], [address], 06/16/2022 15:33:53 01/23/20 23 01/12/2023 , [facility] ardio gram No observ ation record ed. [facility] [address], [place], [address], 01/22/2023 14:59:53 03/21/19 25 03/14/2024 MAMMO , scree gita, tomos ynthe sis, bilat eral No observ ation record ed. [facility] [address], [place], [address], 03/21/2024 13:49:29 06/14/19 25 06/13/2024 XR, lumbo sacra l spine , 2 or 3 view No observ ation record ed. [facility] [address], [place], [address], 06/16/2024 08:58:07 Result Notes None recorded. Problems Name Problem SNOMED Code Status Onset Date Resolution Date Notes Provider Name and Address Organization Details Recorded Time Hypothyroidism 22724040 Active 2022 Nicole Jones, PROFESSOR OF MUSIC [address], [place], [address], [place] - [facility] 3 16:32:08 Acid reflux 025388488 Active 2022 Nicole Jones, PROFESSOR OF MUSIC [address], [place], [address], [place] - [facility] 3 16:32:06 Body fluid retention 50450478 Active 2022 Nicole Jones APRN [address], [place], [address], [place] - [facility] 3 16:33:03 Obesity 666545882 Active 2022 Nicole Jones PROFESSOR OF MUSIC [address], [place], [address], [place] - [facility] 3 16:32:04 Problem [...] Details Last Updated DateTime 3 18 /min 432485. 02 g 40.7 kg/m2 170.18 cm 97.8 [...] Updated DateTime 3 170.18 cm 39.1 kg/m2 439515. 65 g 97.3 [degF] 79 /min 97 % 97 % 18 /min 110/70 mm[Hg] Christal Sheehan [facility] 3 09:25:34 Date Recorded Body height Body mass index (BMI) Body weight Body temperature Heart rate Oxygen saturation Oxygen saturation in Arterial blood by Pulse oximetry Respiratory rate Systolic And Diastolic Provider Name and Address Organization Details Last Updated DateTime 3 170.18 cm 38.5 kg/m2 039987. 72 g 97.4 [degF] 94 /min 97 % 97 % 18 /min 128/80 mm[Hg] Christal Sheehan [facility] 3 16:29:33 Social History Question Answer Notes LastModified by Organizat ion Details LastModified Time Tobacco Smoking Status Never Smoker Kaykay alexander [facility] 06/16/2022 14:34:05 Do You Have [...] Or The Highest Degree You Have Received? [id number] Information not available 06/16/2022 Have There Been [...] Do You Have A Medical Power Of Rubber Goods Finisher? 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 [id number] Information not available 06/16/2022 Do you have [...] 14:34:04 Medical History Condition Response Obesity Y Acid Reflux (GERD) Y Headaches Y Irritable Bowel Syndrome Y Constipation Y Thyroid Problems Y Gynecological History Statement/Question [...] mcg/0.25mL dose 1 completed Christal Crawfordler null, [place] - [facility] 08/25/2022 09:08:24 Td (adult), 2 Lf tetanus toxoid, preservative free, adsorbed 2 completed Christal Sheehan [place], [place] - [facility] 08/25/2022 09:08:24 Hep B, adult 2 completed Christaladelfo Sheehan [place], [place] - [facility] 08/25/2022 09:08:24 Hep B, adult 2 completed Christal Aguila null, [place] - [facility] 08/25/2022 09:08:24 Past Encounters Encounter ID Performer Location Encounter Start Date Encounter Closed Date Diagnosis/Indication Diagnosis SNOMED-CT Code Diagnosis ICD10 Code Diagnosis Note [id number] Nicole Jones [address] [address] 06/16/2022 14:00:17 06/16/2022 16:00:41 Acid reflux 493893941 K21.9 Hypothyroidism 23086742 E03.9 Obesity 332537575 E66.9 Pt compliant with plan of [facility] reviewed and appropriat emedicatio n compliance discussedL ast uds: 3Control substance agreement and adipex consent on filediscus sed diet and exercise plan Long-term current use of drug therapy 474703189 Z79.899 Body fluid retention 434 28903 R60.9 [id number] Nicole Jones [address] [address] 08/25/2022 09:06:36 08/25/2022 10:32:59 Obesity 670390183 E66.9 Pt compliant with plan of careKasper reviewed and appropriat emedicatio n compliance discussedL ast uds: 3Control substance agreement and adipex consent on filediscus sed diet and exercise plan Body mass index 30+ - obesity 199132996 Z68.39 [id number] Nicole MANNIE Jones [address] [address] 10/20/2022 16:03:01 10/20/2022 17:04:42 Obesity 539157153 E66.9 Pt compliant with plan of careKasper reviewed and appropriat emedicatio n compliance discussedL ast uds: 3Control substance agreement and adipex consent on filediscus sed diet and exercise plan Body mass index 30+ - obesity 557523419 Z68.38 Mood disorder 62609908 F 39 Health Concerns Section Related Observation LastModified by Organization Detai ls LastModified Time None Recorded Concern Status LastModified by Organization Details LastModified Time None Recorded Advance Directives Directive N: Payers Insurance Date Sequence Insurance Name Policy Number Policy Mcdowell Covered Member ID Mcdowell Member ID Guarantor Name 10/23/2022 1 [employer] (POS II) [id number] Bella Isiah [id number] Bella Joyce Notes Date Note Type [...] dm Nicole Robert, MANNIE [address], [place], [address], [place] - [facility] 06/16/2022 16:36:06 08/25/2022 text/html 46 yr old female presents to follow up on weight loss. pt down 11 lbs. pt states she is only taking 1/2 tab due to side effects. pt states she is following a diet and exercise plan Nicole Jones APRN [address], [place], [address], [place] [facility] 08/25/2022 10:51:44 10/20/2022 text/html 46 yr old female presents to follow up on weight loss. pt states the adipex causes her hr to rise when she drinks coffee and she wanted to try something else as she weans herself down from coffee Nicole Jones, PROFESSOR OF MUSIC [address], [place], [address], [facility] - [facility] 10/23/2022 08:31:37 OBGyn Episode No OBEpisode recorded.
[2024-09-24 17:05] LABS: Hematocrit 38.5 % (37.0-47.0); Hemoglobin 12.5 g/dL (12.2-16.2); Immature Granulocytes % 0.1 %; Mean Corpuscular HGB Conc 32.5 g/dL (31.8-35.4); Mean Corpuscular Hemoglobin 29.5 pg (27.0-31.2); Mean Corpuscular Volume 90.8 fl (81-99); Nucleated Red Blood Cells % 0 %; Platelet Count 287 K/mm3 (142-424); Red Blood Count 4.24 M/mm3 (4.20-5.40); Red Cell Distribution Width-SD 43.0 fL; White Blood Count 8.6 K/mm3 (4.8-10.8)
[2024-09-24 17:58] LABS: Iron 87 ug/dL (37-170)
[2024-09-24 18:08] LABS: Total Iron Binding Capacity 339 ug/dL (265-497)
[2024-09-24 18:32] LABS: Ferritin 15.2 ng/ml (6.24-137)
== END 2024-09-24 23:59 | disposition home or self-care (01) ==
LOC: LAB 16:31
PROVIDERS: PCP Nurse Practitioner Family; Visit Provider Internal Medicine Medical Oncology
DX: D50.9 Iron deficiency anemia, unspecified (principal)
CPT/HCPCS: 36415; 82728; 83540; 83550; 85025

== ENCOUNTER 2024-10-07 10:57 | Day surgery (SDC) | payer OTHER, SELFPAY ==
[2024-10-07 11:10] VITALS: BP 130/89; PULSE 68; RESP 18; O2SAT 98; BMI 41.3
[2024-10-07] MEDS: BUPIVACAINE 0.25% 10ML INJ 25 MG IJ (11:27)
[2024-10-07] MEDS: LIDOCAINE 1% 5ML PF VIAL 5 ML (11:27)
[2024-10-07 11:28] VITALS: BP 108/87; PULSE 64; RESP 18; O2SAT 98
[2024-10-07 11:35] VITALS: BP 114/79; PULSE 69; RESP 18; O2SAT 99
--- NOTE | 2024-10-07 11:35 | P.PCN_ITS ---
Procedure Date: 10/07/24 Time: 11:30 Anesthesiologist:: Mitchell Wing CRNA Complications:: None Pre-procedure Diagnosis:: Degenerative disc lumbar spine multilevels. Lumbar radiculopathy. Lumbar facet arthropathy. Lumbar spondylosis. Post-procedure Diagnosis:: Same. Indications for Procedure:: Patient is a pleasant 48-year-old female that comes our clinic today for round 2 of diagnostic lumbar medial branch blocks/facet injections of bilateral L4-5, L5-S1 level. Patient describes low back pain as constant, dull, aching. She reports significant improvement terms of her overall low back pain following her first round of injections at the same level. She rates her pain 7/10. Procedure Details:: Informed consent was obtained and the risk and benefits of the procedure was explained to the patient. Patient was taken to the procedure room where noninvasive monitors were placed, including noninvasive blood pressure cuff as well as pulse oximeter. The area over the lumbar spine was cleansed using chlorhexidine as a cleansing solution. I anesthetized the skin and subcutaneous tissues with 1% Lidocaine. I placed 22-gauge spinal needles into the facet joint/ medial branches of L4-L5, and L5-S1 bilaterally. Needle placement was c onfirmed with fluoroscopy. After confirmation of needle placement, each site was injected with 1 mL of 1% lidocaine and 0.25 % Marcaine 1 mL. Patient tolerated the procedure without difficulty. There were no complications. Plan and Disposition:: Patient was discharged without incident.
== END 2024-10-07 11:35 | disposition home or self-care (01) ==
PROVIDERS: PCP Nurse Practitioner Family; Visit Provider Nurse Anesthetist, Certified Registered
DX: M47.816 Spondylosis without myelopathy or radiculopathy, lumbar region (principal); M51.16 Intervertebral disc disorders with radiculopathy, lumbar region; I10 Essential (primary) hypertension; E03.9 Hypothyroidism, unspecified; K21.9 Gastro-esophageal reflux disease without esophagitis; F41.9 Anxiety disorder, unspecified; D50.9 Iron deficiency anemia, unspecified; F32.A Depression, unspecified; Z79.899 Other long term (current) drug therapy; Z79.890 Hormone replacement therapy
CPT/HCPCS: 64493; 64494; J0665; J2003

== ENCOUNTER 2024-10-22 14:23 | Outpatient (POV) | payer OTHER, SELFPAY ==
--- OUTSIDE RECORDS SUMMARY | 2024-10-22 14:27 | XMS_ITS | Patient Health Record ---
Author Organization [facility] Address [address] [place] [address] Care Team Providers Care Farm Or Ranch Animal Caretaker Name Role Phone Marion Ibanez Unavailable [phone] Allergies No Known Allergies Reason For Referral [...] No Section Notes: Do you have any rastafarian or culture customs that your provider should know about?: No Do you now or have you ever smoked or used tobacco products?: No Have you ever used any recreational drugs?: No Have you had a drink containing alcohol in the last year?: No Would you object to blood products in the event of an emergency?: No Do you have any rastafarian or culture customs that your provider should know about?: No Do you now or have you ever smoked or used tobacco products?: No Have you ever used any recreational drugs?: No Have you had a drink containing alcohol in the last year?: No Would you object to blood products in the event of an emergency?: No Do you have any rastafarian or culture customs that your provider should [...] W/U Status Risk Notes Problem Menopausal symptom (61285530) Menopausal symptoms (N95.1) Active confirmed Problem Hypothyroidism (05474452) Hypothyroidism, unspecified type (E03.9) Active confirmed Plan Of Treatment No Information Insurance Providers Payer Name Payer Address Payer Phone Subscriber Number Group Number Insured Name Patient Relationship to Insured Coverage Start Date Coverage End Date Aetna Choice POS [address] [place], [place] [id number] Bella Joyce Self - patient is the [...]
--- OUTSIDE RECORDS SUMMARY | 2024-10-22 14:27 | XMS_ITS | Referral Summary ---
Author Organization [employer] ([place], [place], [place], [place]) Address [address] [place] [address] Care Team Providers Care Workday Manager Name Role Phone Unavailable Primary Care [...] Date Parmjit rded Speak language other than Cambodian at home Not on file 04/07/2023 Want [...]
--- OUTSIDE RECORDS SUMMARY | 2024-10-22 14:27 | XMS_ITS | Clinical Summary ---
Author Organization [employer] ([place], [place], [place], [place]) Address [address] [place] [address] Care Team Providers Care Director Of Leadership Development Name Role Phone Unavailable Primary Care Provider [...] Date Parmjit rded Speak language other than Dominican at home Not on file 04/07/2023 Want [...]
--- OUTSIDE RECORDS SUMMARY | 2024-10-22 14:27 | XMS_ITS | Encounter Summary ---
Author Organization [employer] ([place], [place], [place], [place]) Address [address] [place] [address] Care Team Providers Care Two Way Radio Technician Name Role Phone Unavailable Primary Care Provider Unavailabl e Encounter Details Date Type Department Care Team (Late st Contact Info) Description 06/13/2022 Outside Orders [facility] Central Scheduling [address] [place] [address] Marion Ibanez, MANNIE [address] [facility] [address] [place] [address] Mastodynia (Primary Dx) Social History Tobacco Use [...]
--- OUTSIDE RECORDS SUMMARY | 2024-10-22 14:27 | XMS_ITS | Clinical Summary ---
[facility] Organization [facility] Address [address] [place] [address] Care Team Providers Care State Game Warden Name Role Phone Nicole Jones APRN Primary Care Provider + [phone] Family History Medical History Relation Name Comments Breast cancer Neg Hx Ovarian cancer Neg Hx Social History Tobacco Use Types Packs/Day Years Used Date Smoking Tobacco: Never Assessed Abuse Screen Answer Date Recorded Unsafe at Home or Work/School Not on file Feels Threatened by Someone? Not on file 11/2022 Does Anyone Keep You from Co ntacting Others or Doint Things Outside the Home? Not on file 12/25/2022 Physical Sign of Abuse Present Not on file 1 Housing Stability Answer Date Recorded Current Living Arrangements Not on file 11/2022 Potentially Unsafe Housing Conditions Not on manisha e 12/25/2022 Family and Community Support Answer Chaparro e Recorded Help with Day-to-Day Activities Not on file 12/25/2022 Lonely or Isolated Not on file 12/25/2022 Employment Answer Date Recorded Do you want help finding or keeping work or a anup b? Not on file 12/25/2022 Disabilities Answer Date Recorded Concentrating, Remembering, or Making Decisions Difficulty Not on file 12/25/2022 Doing Errands Independently Difficulty Not on fi le 12/25/2022 Education Answer Date Recorded Help with school or training? Not on file Preferred Language Not on file 12/25/2022 Comments No Sex and Gender Information Value Date Recorded Sex Assigned at Not on file Legal Sex Female 10:43 AM EDT Gender Identity Not on file Sexual Orientation Not on file Plan of Treatment Health Maintenance Due Date Last Done Comments ANNUAL PHYSICAL 1975 Annual Gynecologic Pelvic and Breast Exam 1975 HEPATITIS C SCREENING 1973 TDAP/TD VACCINES (2 - Tdap) 10/22/2011 10/21/2001 COLOGUARD 2018 COLON CANCER SCREENING 5 YEA R SIGMOIDOSCOPY 2018 COLONOSCOPY 2018 [address]AL CANCER SCREENING 2018 CT COLONOGRAPHY 2018 FECAL OCCULT BLOOD TEST 2018 FIT Testing (1 year) 2018 COVID-19 Vaccine (3 - season) 11/18/202305/2020, 03/22/2020 Pneumococcal Vaccine 50+ (1 of 1 - PCV) 11/28/2023 ZOSTER VACCINE (1 of 2) 11/28/2023 MAMMOGRAM 07/28/2024 07/28/2022 INFLUENZA VACCINE 12/17/2024 Procedures Procedure Name Priority Date/Time Associated Diagnosis Comments MAMMO DIAGNOSTIC DIGITAL TOMOSYNTHESIS BILATERAL W CAD Routine 07/28/2022 10:48 AM EDT Breast tenderness from Last 3 Months or Most Recently Relevant to Health Maintenance Results * Mammo Diagnostic Digital Tomosynthesis Bilateral With CAD (07/28/2022 10:48 AM EDT) Anatomical Region Laterality Modality Breast Bilateral Mammography 07/28/2022 11:0 7 AM EDT Impressions 07/28/2022 11:09 AM EDT Benign bilateral mammographic and focused sonographic findings. BI-RADS CATEGORY: 2, BENIGN RECOMMENDATION: Recommend clinical follow-up. Any clinically suspicious palpable finding should be biopsied regardless of imaging findings. Also recommend the patient begin routine annual screening mammography in one year. CAD was utilized. The standard false-negative rate of mammography is between 10% and 25%. Complex patterns or increased breast density will markedly elevate the false-negative rate of mammography. The patient was notified of the results and recommendations at the time of her visit. Additionally, a letter, in lay terminology, with the results of this exam will be mailed to the patient. This report was finalized on 07/28/2022 11:[address] Hodan Peterson MD. Narrative 07/28/2022 11:09 AM EDT BILATERAL DIAGNOSTIC MAMMOGRAM WITH TOMOSYNTHESIS AND BILATERAL BREAST ULTRASOUND CLINICAL INDICATION: 46-year-old patient presents for bilateral focal palpable areas of concern as well as generalized pain and lumpiness. She has no personal or reported family history of breast cancer. TECHNIQUE: Low dose full field digital breast tomosynthesis imaging was performed with 2D and 3D acquisitions consisting of bilateral CC and MLO views. Focused ultrasound evaluation of the left and right breast was also performed. COMPARISON: No prior exam is available for comparison. FINDINGS: There are scattered areas of fibroglandular density. No dominant mass, suspicious calcifications, or areas of architectural distortion are seen. A few scattered benign-appearing calcifications are noted. ULTRASOUND: Focused sonographic evaluation of the patient's palpable areas of concern in the right 1:00 region and left 11:00 region demonstrates no underlying sonographic abnormality. No solid or cystic mass is seen nor is there an abnormal area of shadowing in the imaged portion of either breast. us Marion Ibanez APRN IMG MAMMOGRAPHY ORDERA BLES Final Result from Last 3 Months or Most Recently Relevant to Health Maintenance Insurance [employer] Care Teams State Game Warden Relationship Specialty Start Date End Date Nicole Jones APRN [address] [place] [address] PCP - General Family Medicine 06/09/22
[2024-10-22 14:36] VITALS: BP 106/80; PULSE 74; RESP 14; O2SAT 94; BMI 41.5
--- NOTE | 2024-10-22 14:55 | EXP.PAIN.SOA ---
[facility] Disclaimer: The information contained in this section may have been updated after the patient was seen, as this information can be updated by other users. Medical History Hx of iron deficiency anemia Hypothyroid GERD (gastroesophageal reflux disease) HTN (hypertension) Anxiety Depression Anemia Surgical History Hx of tubal ligation Hx of section H/O bariatric surgery Family History Other Ischemic heart disease Social History Smoking Status: Never smoker second hand exposure: No alcohol intake: never current occupational status: other Travel in the last 8 weeks?: None household members: spouse housing: house current occupational exposures/hazards: No caffeine: Yes PM Subjective & Objective Subjective Subjective:: Patient is a pleasant 48-year-old female who presents today for follow-up of her second diagnostic lumbar medial branch block bilaterally L4-L5 and L5-S1 on 10/07/2024. Today she rates the pain a 4 out of 10 and states that she had pretty much quick improvement within about 2 to 3 days and rated 80% relief. Patient does feel like that it is already starting to wear off however. She states that last night she was doing the dishes and did have significant pain of at least 5 out of 10 or more there in her low back. She states that it is worse with the bending, twisting and lifting. Patient does state the pain does interfere with her ability perform activities of daily living such as cooking and cleaning. Patient would like to see about going on and proceeding forward with the ablation as these injections have really made a difference in her overall function. Patient is prescribed compounded cream from our office. Her Richard has been reviewed and is appropriate. Review of Systems: General: No recent weight changes, no fever, no sleep disturbances Respiratory: No cough, no shortness of air, no recurring pulmonary infections Cardiovascular/peripheral vascular: No chest pain, no palpitations, no edema, no shortness of breath Gastrointestinal: No new onset incontinence, normal bowel movements reported Genitourinary: No new onset incontinence Musculoskeletal: Low back pain Psychiatric: [Normal mood/affect] Neurological: [Denies weakness in extremities], [denies balance issues] Pain at rest (0-10 scale): 5 Objective Objective:: Physical Exam: General: Alert and oriented x3, no acute distress, pleasant and cooperative Lungs: Respirations even and unlabored, symmetrical chest expansion Eyes: PERRL Musculoskeletal: Flexion and extension of lumbar [spine] somewhat guarded secondary to pain, [antalgic gait noted] positive Kemps test Neurological: Speech clear, no gross sensory deficit Has patient had previous pain injection?: Yes Percent improvement in pain since last injection: 80% Conservative treatment options previously tried: Home exercise plan Length of treatment: Longer than 12 weeks Meds Home Medications and Allergies Home Medications ?Medication ?Instructions ?Recorded ?Confirmed ?Type hydrochlorothiazide 25 mg tablet 25 mg PO DAILY fluid retention 07/08/20 10/22/24 History levothyroxine 75 mcg tablet 75 mcg PO DAILY hypothyroid 07/08/20 10/22/24 History omeprazole 20 mg capsule,delayed 20 mg PO DAILY GERD 07/08/20 10/22/24 History release cetirizine 10 mg tablet 10 mg PO DAILY seasonal allergies 01/26/23 10/22/24 History bisoprolol fumarate 10 mg tablet 10 mg PO DAILY #90 tabs 01/03/24 10/22/24 Rx multivitamin-calcium, 1 tab PO DAILY Supplement 01/03/24 10/22/24 History [id number] isoflavone 400 mcg-60 mg tablet (One-A-Day Menopause Formula) polysaccharide iron complex 180 mg 180 mg PO DAILY Anemia 01/03/24 10/22/24 History iron capsule (Pro Fe) CombiPatch 0.05 mg-0.14 mg/24 hr 1 patch transdermal .2xweekly #8 ea 02/25/24 10/22/24 Rx transdermal (estradiol-norethindrone acet) New Prescriptions to Start Prescriptions: Allergies Allergy/AdvReac Type Severity Reaction Status Date / Time No Known Allergies Allergy Verified 02/22/24 14:24 Assessment and Plan *Assessment and plan (1) Degenerative disc disease: Status: Acute Category: Medical (2) Lumbar facet arthropathy: Status: Acute Category: Medical Code(s): M47.816 - Spondylosis without myelopathy or radiculopathy, lumbar region Plan Patient has had significant improvement with both her 1st and 2nd diagnostic lumbar medial branch block with her second 1 providing 80% relief and at least giving more than a week of improvements. Patient did have overall improved function with decreased pain. She is starting to experience more pain today with limited range of motion of her lumbar spine and a positive Kemps test. I did review over with her the risk and benefits of the lumbar RFA and she would like to proceed forward with this plan of care. Patient has continued conservative therapy including oral medication, heat and ice, topicals, at home stretching exercise for longer than 12 weeks. Patient will be submitted for a lumbar RFA bilaterally L4-L5 and L5-S1 under fluoroscopy. This will be a thermal nonpulsed burn at 80 ?C. We will follow-up with her following this procedure. Patient has been instructed to contact the clinic with any concerns before the next appointment. Dr. Hurst has reviewed this note and agrees with this plan of care. This note was dictated using voice recognition software and make contain errors or omissions. All injections are used with Lidocaine, Bupivacaine and dexamethasone. Occasionally urine drug screen is needed to verify patient's compliance with our office pain contract. This is ordered based off specific treatments related to chronic pain with the potential to abuse certain medications.
== END 2024-10-22 23:59 | disposition home or self-care (01) ==
LOC: SC.PAIN 14:25
PROVIDERS: PCP Nurse Practitioner Family; Visit Provider Nurse Practitioner Family
DX: M47.816 Spondylosis without myelopathy or radiculopathy, lumbar region (principal)
CPT/HCPCS: 99212; G0463

== ENCOUNTER 2024-11-25 12:07 | Day surgery (SDC) | payer OTHER, SELFPAY ==
[2024-11-25 12:05] VITALS: BP 112/72; PULSE 71; RESP 18; O2SAT 100; BMI 41.3
[2024-11-25 12:13] VITALS: BP 120/48; PULSE 65; PULSE 66; RESP 18; O2SAT 99
[2024-11-25] MEDS: DEXAMETHASONE 10MG/ML 1ML VIAL 10 MG (12:20)
[2024-11-25] MEDS: BUPIVACAINE 0.25% 10ML INJ 25 MG IJ (12:20)
[2024-11-25] MEDS: LIDOCAINE 1% 5ML PF VIAL 5 ML (12:20)
[2024-11-25 12:32] VITALS: BP 132/83; PULSE 72; RESP 18; O2SAT 99
--- NOTE | 2024-11-25 13:21 | P.PCN_ITS ---
Procedure Date: 11/25/24 Time: 13:20 Anesthesiologist:: Tye Wing CRNA Complications:: None Pre-procedure Diagnosis:: Degenerative disc lumbar spine multilevels. Lumbar radiculopathy. Lumbar spondylosis. Multilevel lumbar facet arthropathy. Post-procedure Diagnosis:: Same. Indications for Procedure:: Patient is a very pleasant 48-year-old female who comes our clinic today for bilateral lumbar L4-5, L5-S1 radiofrequency ablation. Patient describes low lumbar back pain as constant, dull, aching. Patient responded well to medial branch blocks/facet injections at same levels. She rates her pain 7/10. Procedure Details:: Procedure Details: Lumbar RFA Informed consent was obtained and the risk and benefits of the procedure was explained to the patient. Patient was placed prone on the procedure table. The patient was prepped and draped in sterile fashion. C-arm fluoroscopy was used to view the lumbar spine. The skin and subcutaneous tissues were anesthetized using lidocaine. I placed 20-gauge RF needles into the facet joints of L3-L4, L4-L5 and L5-S1 bilaterally. We underwent sensory stimulation. There is good sensory stimulation at 0.8 V. We underwent motor stimulation. There is no motor stimulation at 2 V. We then anesthetized these levels with lidocaine and Depo- Medrol. I used a total of 10 mg of dexamethasone for all 3 levels. I then burned all 3 levels of L3-L4, L4-5 and L5-S1 bilaterally for 4 minutes at 80 ?C. Patient tolerated the procedure well with no complication. Plan and Disposition:: We will follow-up with this patient in 2 weeks. We will reevaluate her symptoms at that time. Plan and Disposition:: Patient was discharged without incident.
== END 2024-11-25 12:32 | disposition home or self-care (01) ==
LOC: SC.PAINP 12:08
PROVIDERS: PCP Nurse Practitioner Family; Visit Provider Nurse Anesthetist, Certified Registered
DX: M51.16 Intervertebral disc disorders with radiculopathy, lumbar region (principal); M47.26 Other spondylosis with radiculopathy, lumbar region; K21.9 Gastro-esophageal reflux disease without esophagitis; I10 Essential (primary) hypertension; E03.9 Hypothyroidism, unspecified; Z79.890 Hormone replacement therapy; Z79.899 Other long term (current) drug therapy
CPT/HCPCS: 64635; 64636; J0665; J1100; J2003